=== PATIENT | female | born 1930 | race American Indian/Alaskan Native ===

== ENCOUNTER 2017-03-04 23:02 | Inpatient (IN) | payer MEDICARE ==
--- NOTE | 2017-03-05 01:54 | ED PDOC ---
Arrival/HPI - General Chief Complaint: Psychiatric Evaluation Time Seen by Provider: 03/04/17 23:21 Historian: Patient EM Caveat: Dementia - History of Present Illness Narrative History of Present Illness (Text): 03/05/17 23:21 86 year old female, whose past medical history includes dementia, presents to the emergency department by her residential for combative behavior. Patient is currently Alert & Oriented x1. Patient currently has no complaints, but patient has tenderness to belly. Patient is a bad historian. Patient denies any fevers, chills, chest pain, shortness of breath, nausea, vomiting, diarrhea, back pain, neck pain, urinary/bowel changes, headache, dizziness, or any other complaint. Activities at Onset: Light Context: Home (Long Term) Past Medical History - Provider Review Nursing Documentation Reviewed: Yes - Psychiatric Hx Substance Use: (un) Family/Social History - Physician Review Nursing Documentation Reviewed: Yes Family/Social History: No Known Family HX Smoking Status: un Hx Alcohol Use: (un) Hx Substance Use: (un) Allergies/Home Meds Allergies/Adverse Reactions: Allergies ciprofloxacin [From Cipro] Allergy (Verified 03/04/17 23:29) RASH Tetracyclines Allergy (Verified 03/04/17 23:29) RASH Home Medications: Home Meds Medication Instructions Recorded Confirmed Aspirin [Aspirin Chewable] 81 mg PO DAILY 03/04/17 03/04/17 Carvedilol [Coreg] 12.5 mg PO DAILY 03/04/17 03/04/17 Clopidogrel [Plavix] 75 mg PO DAILY 03/04/17 03/04/17 Hydralazine HCl 100 mg PO DAILY 03/04/17 03/04/17 Isosorbide Mononitrate [Isosorbide 60 mg PO DAILY 03/04/17 03/04/17 Mononitrate ER] Lorazepam 2 mg PO Q12H PRN 03/04/17 03/04/17 amLODIPine [Norvasc] 10 mg PO DAILY 03/04/17 03/04/17 Review of Systems - Physician Review All systems were reviewed & negative as marked: Yes - Review of Systems Constitutional: absent: Fevers, Other (Chills) Respiratory: absent: SOB Cardiovascular: absent: Chest Pain Gastrointestinal: Abdominal Pain. absent: Diarrhea, Nausea, Vomiting Genitourinary Female: absent: Dysuria, Frequency, Hematuria Musculoskeletal: absent: Back Pain, Neck Pain Neurological: absent: Headache, Dizziness Physical Exam Vital Signs Reviewed: Yes Vital Signs Temp Pulse Resp BP Pulse Ox 03/05/17 17:00 60 18 132/86 98 03/05/17 15:32 64 18 164/69 H 03/05/17 09:43 63 12 145/66 100 03/05/17 07:00 62 18 141/60 98 03/05/17 05:02 74 16 138/74 100 03/05/17 03:02 76 18 148/76 99 03/05/17 01:02 66 03/04/17 23:14 98.3 F 69 18 142/60 100 Temperature: Afebrile Blood Pressure: Normal Pulse: Regular Respiratory Rate: Normal Appearance: Positive for: Well-Appearing, Non-Toxic, Comfortable Pain Distress: None Mental Status: No: Alert and Oriented X 3 (Alert and Oritented ) - Systems Exam Head: Present: Atraumatic, Normocephalic Pupils: Present: PERRL Extroacular Muscles: Present: EOMI Conjunctiva: Present: Normal Mouth: Present: Moist Mucous Membranes Neck: Present: Normal Range of Motion Respiratory/Chest: Present: Clear to Auscultation, Good Air Exchange. No: Respiratory Distress, Accessory Muscle Use Cardiovascular: Present: Regular Rate and Rhythm, Normal S1, S2. No: Murmurs Abdomen: Present: Tenderness, Normal Bowel Sounds, Guarding. No: Distention, Peritoneal Signs Back: Present: Normal Inspection Upper Extremity: Present: Normal Inspection. No: Cyanosis, Edema Lower Extremity: Present: Normal Inspection. No: Edema Neurological: Present: GCS=15, CN II-XII Intact, Speech Normal Skin: Present: Warm, Dry, Normal Color. No: Rashes Psychiatric: Present: Alert. No: Oriented x 3 (Oriented x 1 ) Medical Decision Making ED Course and Treatment: 03/05/17 23:32 Impression: 86 year old female presents for combative behavior. Patient currently has tenderness to the abdomen. Plan: -- CT Abd & Pelvis IV Contrast -- EKG -- Labs -- Urinalysis -- Reassess and disposition Progress Notes: 03/05/17 03:23 Patient is increasingly agitated and trying to get out of bed. Patient is hallucinating and delusional. Unable to obtain lab work, but patient is not violent. 03/05/17 03:55 PES attempted to speak with patient. Patient was agitated and was too sedated after the medication. Patient has not yet been medically cleared. PES will come back after medical clearance. 03/05/17 07:00 EKG shows NSR at 62 BPM with 1st degree AV block, T-wave flattened in lead III and avf, QTc 433 mm prolonged. Interpreted by me. - Lab Interpretations Microbiology Results: Microbiology Results 03/05/17 17:00 Blood-Venous Blood Culture - Preliminary NO GROWTH AFTER 3 DAYS 03/05/17 16:03 Urine,Clean Catch Urine Culture - Final Escherichia Coli Lab Results: 03/05/17 05:02 03/05/17 05:02 Lab Results 03/05/17 16:03: Urine Color Yellow, Urine Appearance Sl cloudy, Urine pH 7.0, Ur Specific Hayes 1.010, Urine Protein Negative, Urine Glucose (UA) Negative, Urine Ketones Negative, Urine Blood Negative, Urine Nitrate Positive H, Urine Bilirubin Negative, Urine Urobilinogen 0.2, Ur Leukocyte Esterase Moderate H, Urine RBC Negative, Urine WBC 25 - 30, Ur Epithelial Cells 6 - 8, Urine Bacteria Many 03/05/17 05:02: Sodium 140, Potassium 3.5 L, Chloride 104, Carbon Dioxide 28, Anion Gap 12, BUN 17, Creatinine 1.1, Est GFR ( Amer) 57, Est GFR (Non- Af Amer) 47, Random Glucose 136 H, Calcium 9.3, Total Bilirubin 0.6, AST 37 H, ALT 21, Alkaline Phosphatase 79, Total Protein 7.2, Albumin 3.7, Globulin 3.5, Albumin/Globulin Ratio 1.0 L, Lipase 108 03/05/17 05:02: WBC 8.3, RBC 3.60, Hgb 11.5 L, Hct 34.2 L, MCV 95.0, MCH 31.9, MCHC 33.6, RDW 14.3, Plt Count 231, MPV 10.4, Gran % 36.3 L, Lymph % (Auto) 44.9 H, [place] % (Auto) 10.5 H, Eos % (Auto) 7.7 H, Baso % (Auto) 0.6, Gran # 3.01 , Lymph # 3.7 H, [place] # 0.9 H, Eos # 0.6, Baso # 0.05 I have reviewed the lab results: Yes - RAD Interpretation Radiology Orders: 03/05/17 07:16 ABD & PELVIS W/O PO OR IV CONT [CT] Stat 03/05/17 17:09 CHEST PORTABLE [RAD] Stat - EKG Interpretation Interpreted by ED Physician: Yes Type: 12 lead EKG - Medication Orders Current Medication Orders: Amlodipine Besylate (Norvasc) 10 mg PO DAILY [facility] Last Admin: 03/07/17 10:55 Dose: 10 mg MAR Blood Pressure Document 03/07/17 10:55 Y (Rec: 03/07/17 10:55 [id number][facility] Blood Pressure Blood Pressure (100/60-150/90) 139/75 Aspirin (Aspirin Chewable) 81 mg PO DAILY [facility] Last Admin: 03/08/17 18:38 Dose: 81 mg Carvedilol (Coreg) 12.5 mg PO DAILY [facility] Last Admin: 03/07/17 10:55 Dose: 12.5 mg MAR Pulse and Blood Pressure Document 03/07/17 10:55 Y (Rec: 03/07/17 10:55 [id number]) Pulse Pulse Rate (60-90) 84 Blood Pressure Blood Pressure (100/60-150/90) 139/75 Clopidogrel Bisulfate (Plavix) 75 mg PO DAILY [facility] Last Admin: 03/08/17 18:38 Dose: 75 mg Divalproex Sodium (Depakote Sprinkles) 125 mg PO TID [facility] PRN Reason: Protocol Last Admin: 03/08/17 18:40 Dose: 125 mg Enoxaparin Sodium (Lovenox) 30 mg SC DAILY [facility] PRN Reason: Protocol Last Admin: 03/08/17 18:57 Dose: 30 mg Subcutaneous Administrations Document 03/08/17 18:57 CV (Rec: 03/08/17 18:57 CV [id number]) Charges for Administration # of Subcutaneous Administrations 1 Haloperidol (Haldol) 0.25 mg PO Q4 PRN; Protocol PRN Reason: Agitation Last Admin: 03/09/17 02:16 Dose: 0.25 mg Behavioural Document 03/09/17 02:16 [place] (Rec: 03/09/17 02:16 [place] [id number]) Maintenance Maintenance Dose No Nonmedicinal Nonmedicinal Interventions Redirect Behavior Behavior for Medication: Biting/Hitting/Throwing/ Kicking Pulling IV lines/tubes/ catheter Haloperidol (Haldol) 0.25 mg PO AMHS JANETTE PRN Reason: Protocol Last Admin: 03/08/17 23:37 Dose: 0.25 mg Re-Assess: Reassess Psych Meds Document 03/09/17 00:37 [place] (Rec: 03/09/17 01:13 [place] [id number]) Reassess Psych Med Effective Hydralazine HCl (Apresoline) 50 mg PO TID JANETTE Last Admin: 03/07/17 14:28 Dose: Not Given Non-Admin Reason: Patient Refused Ceftriaxone Sodium (Rocephin 1 Gram Ivpb) 1 gm in 100 mls @ 100 mls/hr IVPB DAILY JANETTE PRN Reason: Protocol Last Admin: 03/08/17 16:12 Dose: 100 mls/hr eMAR Start Stop Document 03/08/17 16:12 CV (Rec: 03/08/17 16:13 CV [id number]) Intravenous Solution Start Date 03/08/17 Start Time 16:12 Dextrose (Dextrose 5% In Water 1000 Ml) 1,000 mls @ 100 mls/hr IV .Q10H [facility] Last Admin: 03/08/17 01:06 Dose: 100 mls/hr eMAR Start Stop Document 03/08/17 01:06 [facility] (Rec: 03/08/17 01:06 [id number]) Intravenous Solution Start Date 03/08/17 Start Time 01:06 Isosorbide Mononitrate (Imdur) 60 mg PO DAILY [facility] Last Admin: 03/07/17 10:54 Dose: 60 mg Lactobacillus Acidophilus (Bacid Acidophilus) 1 cap PO BID JANETTE Last Admin: 03/08/17 18:40 Dose: 1 cap Lorazepam (Ativan) 0.25 mg PO Q4 PRN PRN Reason: Agitation Last Admin: 03/09/17 02:15 Dose: 0.25 mg Behavioural Document 03/09/17 02:15 [place] (Rec: 03/09/17 02:15 [place] [id number]) Maintenance Maintenance Dose No Nonmedicinal Nonmedicinal Interventions Redirect Behavior Behavior for Medication: Biting/Hitting/Throwing/ Kicking Pulling IV lines/tubes/ catheter Re-Assess: Reassess Psych Meds Document 03/09/17 03:15 [place] (Rec: 03/09/17 03:55 [place] [id number]) Reassess Psych Med Effective Pantoprazole Sodium (Protonix Ec Tab) 40 mg PO 0600 [facility] Last Admin: 03/08/17 06:42 Dose: 40 mg Polyethylene Glycol (Miralax) 17 gm PO DAILY JANETTE Last Admin: 03/08/17 18:54 Dose: 17 gm Discontinued Medications Furosemide (Lasix) 40 mg IVP ONCE ONE Stop: 03/05/17 19:01 Last Admin: 03/06/17 01:26 Dose: Ceftriaxone Sodium (Rocephin 1 Gram Ivpb) 1 gm in 100 mls @ 200 mls/hr IVPB STAT STA PRN Reason: Protocol Stop: 03/05/17 17:34 Last Admin: 03/05/17 17:44 Dose: 200 mls/hr eMAR Start Stop Document 03/05/17 17:44 EWO (Rec: 03/05/17 17:44 EWO [id number]) Intravenous Solution Start Date 03/05/17 Start Time 17:44 End Date 03/05/17 End time 18:14 Total Infusion Time 30 Lactated Ringer's (Lactated Ringer's) 1,000 mls @ 999 mls/hr IV .Q1H1M JANETTE Last Admin: 03/05/17 17:44 Dose: 999 mls/hr eMAR Start Stop Document 03/05/17 17:44 EWO (Rec: 03/05/17 17:44 EWO [id number]) Intravenous Solution Start Date 03/05/17 Start Time 17:44 End Date 03/05/17 End time 17:55 Total Infusion Time 11 Potassium Chloride (Potassium Chloride 10 Meq/100 Ml) 10 meq in 100 mls @ 50 mls/hr IVPB Q2H JANETTE Stop: 03/05/17 22:59 Last Admin: 03/06/17 05:45 Dose: 50 mls/hr eMAR Start Stop Document 03/06/17 05:45 KT (Rec: 03/06/17 06:05 KT [id number]) Intravenous Solution Start Date 03/06/17 Start Time 05:45 End Date 03/06/17 End time 07:45 Total Infusion Time 120 Potassium Chloride (Potassium Chloride 10 Meq/100 Ml) 10 meq in 100 mls @ 50 mls/hr IVPB Q2H JANETTE Stop: 03/07/17 17:29 Last Admin: 03/07/17 16:08 Dose: 50 mls/hr eMAR Start Stop Document 03/07/17 16:08 YJ (Rec: 03/07/17 16:08 YJ [id number]) Intravenous Solution Start Date 03/07/17 Start Time 16:08 End Date 03/07/17 End time 18:08 Total Infusion Time 120 Sodium Chloride (Sodium Chloride 0.9%) 1,000 mls @ 999 mls/hr IV .Q1H1M STA Stop: 03/07/17 16:09 Last Admin: 03/07/17 15:20 Dose: 999 mls/hr eMAR Start Stop Document 03/07/17 15:20 YJ (Rec: 03/07/17 15:20 YJ [id number]) Intravenous Solution Start Date 03/07/17 Start Time 15:20 End Date 03/07/17 End time 16:20 Total Infusion Time 60 Sodium Chloride (Sodium Chloride 0.9%) 1,000 mls @ 999 mls/hr IV .Q1H1M STA Stop: 03/07/17 16:11 Lorazepam (Ativan) 1 mg IM ONCE ONE PRN Reason: Protocol Stop: 03/05/17 02:43 Last Admin: 03/05/17 02:48 Dose: 1 mg IM Administration Charges Document 03/05/17 02:48 JENIFER (Rec: 03/05/17 02:48 JENIFER [id number]) Injection Site MAR Injection Site Left Deltoid Charges for Administration # of IM Administrations 1 Lorazepam (Ativan) 0.5 mg IM ONCE ONE PRN Reason: Protocol Stop: 03/05/17 20:24 Last Admin: 03/05/17 20:45 Dose: 0.5 mg IM Administration Charges Document 03/05/17 20:45 [place] (Rec: 03/05/17 20:46 [place] [id number]) Injection Site MAR Injection Site Left Vastus Lateralis Charges for Administration # of IM Administrations 1 Behavioural Document 03/05/17 20:45 [place] (Rec: 03/05/17 20:46 [place] [id number]) Maintenance Maintenance Dose No Nonmedicinal Nonmedicinal Interventions Redirect Therapeutic Communication Behavior Behavior for Medication: Anxiety Re-Assess: Reassess Psych Meds Document 03/05/17 21:15 KT (Rec: 03/06/17 01:51 KT [id number]) Reassess Psych Med Ineffective-LIP notifed Lorazepam (Ativan) 0.5 mg IM ONCE ONE PRN Reason: Protocol Stop: 03/05/17 23:54 Last Admin: 03/06/17 00:43 Dose: 0.5 mg IM Administration Charges Document 03/06/17 00:43 KT (Rec: 03/06/17 00:44 KT [place] [id number]) Charges for Administration # of IM Administrations 1 Behavioural Document 03/06/17 00:43 KT (Rec: 03/06/17 00:44 KT [place] [id number]) Nonmedicinal Nonmedicinal Interventions Redirect Therapeutic Communication Re-Assess: Reassess Psych Meds Document 03/06/17 01:13 KT (Rec: 03/06/17 01:51 KT [id number]) Reassess Psych Med Effective Lorazepam (Ativan) 2 mg PO Q12H PRN PRN Reason: Agitation Lorazepam (Ativan) 0.5 mg IM ONCE ONE PRN Reason: Protocol Stop: 03/08/17 14:04 Last Admin: 03/08/17 14:31 Dose: 0.5 mg IM Administration Charges Document 03/08/17 14:31 CV (Rec: 03/08/17 14:31 CV [id number]) Injection Site MAR Injection Site Left Deltoid Charges for Administration # of IM Administrations 1 Behavioural Document 03/08/17 14:31 CV (Rec: 03/08/17 14:31 CV [id number]) Maintenance Maintenance Dose No Nonmedicinal Nonmedicinal Interventions Redirect Behavior Behavior for Medication: Biting/Hitting/Throwing/ Kicking Pulling IV lines/tubes/ catheter Re-Assess: Reassess Psych Meds Document 03/08/17 15:01 CV (Rec: 03/08/17 21:24 CV [id number]) Reassess Psych Med Effective Lorazepam (Ativan) 1 mg IVP ONCE ONE PRN Reason: Protocol Stop: 03/08/17 20:06 Last Admin: 03/08/17 20:23 Dose: 1 mg IVP Administration Document 03/08/17 20:23 [place] (Rec: 03/08/17 20:24 [place] [id number]) Charges for Administration # of IVP Administrations 1 Behavioural Document 03/08/17 20:23 [place] (Rec: 03/08/17 20:24 [place] [id number]) Maintenance Maintenance Dose No Nonmedicinal Nonmedicinal Interventions Redirect Therapeutic Communication Behavior Behavior for Medication: Anxiety Biting/Hitting/Throwing/ Kicking Hallucinations/paranoid/ delusions/extreme fear Re-Assess: Reassess Psych Meds Document 03/08/17 20:53 CV (Rec: 03/08/17 21:27 CV [id number]) Reassess Psych Med Effective Ziprasidone (Geodon Inj) 20 mg IM STAT STA PRN Reason: Protocol Stop: 03/05/17 03:22 Last Admin: 03/05/17 03:30 Dose: 20 mg IM Administration Charges Document 03/05/17 03:30 JENIFER (Rec: 03/05/17 07:42 JENIFER [id number]) Injection Site MAR Injection Site Left Deltoid Charges for Administration # of IM Administrations 1 - Scribe Statement The provider has reviewed the documentation as recorded by the Scribe Jose L Kruger Provider Scribe Attestation: All medical record entries made by the Scribe were at my direction and personally dictated by me. I have reviewed the chart and agree that the record accurately reflects my personal performance of the history, physical exam, medical decision making, and the department course for this patient. I have also personally directed, reviewed, and agree with the discharge instructions and disposition. Disposition/Present on Arrival - Present on Arrival Any Indicators Present on Arrival: No History of DVT/PE: No History of Uncontrolled Diabetes: No Urinary Catheter: No History of Decub. Ulcer: No History Surgical Site Infection Following: None - Disposition Have Diagnosis and Disposition been Completed?: Yes Diagnosis: Dementia Disposition: HOME/ ROUTINE Disposition Time: 08:00 Patient Plan: Discharge Patient Problems: Current Active Problems Problem Status Onset Dementia Acute Condition: IMPROVED
[2017-03-05 05:10] LABS: BASO # 0.05 K/mm3 (0.0-2.0); BASO % 0.6 % (0.0-3.0); EOS # 0.6 (0.0-0.7); EOS % 7.7 % (1.5-5.0); GRAN # 3.01 (1.4-6.5); GRAN % 36.3 % (50.0-68.0); HEMOGLOBIN 11.5 g/dL (12.0-16.0); LYMPH # 3.7 (1.2-3.4); LYMPH % 44.9 % (22.0-35.0); MEAN CORPUSCULAR HEMOGLOBIN 31.9 pg (25.0-35.0); MEAN CORPUSCULAR HGB CONC 33.6 g/dl (31.0-37.0); MEAN PLATELET VOLUME 10.4 fl (7.0-11.0); MONO # 0.9 (0.1-0.6); MONO % 10.5 % (1.0-6.0); RBC 3.6 10^6/uL (3.5-6.1); RED CELL DISTRIBUTION WIDTH 14.3 % (11.5-14.5); WHITE BLOOD COUNT 8.3 10^3/ul (4.5-11.0)
[2017-03-05 05:29] LABS: ALBUMIN 3.7 g/dL (3.0-4.8); CALCIUM 9.3 mg/dL (8.4-10.5)
[2017-03-05] MEDS ORDERED: Iohexol 350 MG/100 ML VIAL ONE (06:54)
--- NOTE | 2017-03-05 08:24 | ED PDOC ---
Physical Exam Vital Signs Reviewed: Yes Vital Signs Temp Pulse Resp BP Pulse Ox 03/05/17 09:43 63 12 145/66 100 03/05/17 07:00 62 18 141/60 98 03/05/17 05:02 74 16 138/74 100 03/05/17 03:02 76 18 148/76 99 03/05/17 01:02 66 03/04/17 23:14 98.3 F 69 18 142/60 100 Temperature: Afebrile Blood Pressure: Normal Pulse: Regular Respiratory Rate: Normal Medical Decision Making ED Course and Treatment: 03/05/17 08:23 Patient endorsed to me by Dr. Finnegan at 07:00, pending CT results and medical clearance for PES evaluation. Report Date : 03/05/2017 11:17:32 PROCEDURE: CT scan of the abdomen and pelvis 03/05/2017. Dictator : Braxton Rocha MD IMPRESSION: Limited study as detailed above. Findings consistent with constipation. Fecalized content is also present within the small bowel. Diverticulosis with no definitive radiographic evidence of acute diverticulitis. Wall thickening of the stomach likely due to incomplete distention however gastritis or other intrinsic/invasive wall lesion not excluded. Cholecystectomy. Cardiomegaly. Mildly enlarged bulky uterus with calcified uterine fibroids. - Lab Interpretations Lab Results: 03/05/17 05:02 03/05/17 05:02 Lab Results 03/05/17 05:02: Sodium 140, Potassium 3.5 L, Chloride 104, Carbon Dioxide 28, Anion Gap 12, BUN 17, Creatinine 1.1, Est GFR ( Amer) 57, Est GFR (Non- Af Amer) 47, Random Glucose 136 H, Calcium 9.3, Total Bilirubin 0.6, AST 37 H, ALT 21, Alkaline Phosphatase 79, Total Protein 7.2, Albumin 3.7, Globulin 3.5, Albumin/Globulin Ratio 1.0 L, Lipase 108 03/05/17 05:02: WBC 8.3, RBC 3.60, Hgb 11.5 L, Hct 34.2 L, MCV 95.0, MCH 31.9, MCHC 33.6, RDW 14.3, Plt Count 231, MPV 10.4, Gran % 36.3 L, Lymph % (Auto) 44.9 H, [place] % (Auto) 10.5 H, Eos % (Auto) 7.7 H, Baso % (Auto) 0.6, Gran # 3.01 , Lymph # 3.7 H, [place] # 0.9 H, Eos # 0.6, Baso # 0.05 - RAD Interpretation Radiology Orders: 03/05/17 07:16 ABD & PELVIS W/O PO OR IV CONT [CT] Stat - Medication Orders Current Medication Orders: Discontinued Medications Lorazepam (Ativan) 1 mg IM ONCE ONE PRN Reason: Protocol Stop: 03/05/17 02:43 Last Admin: 03/05/17 02:48 Dose: 1 mg IM Administration Charges Document 03/05/17 02:48 JENIFER (Rec: 03/05/17 02:48 JENIFER [id number][facility] Injection Site MAR Injection Site Left Deltoid Charges for Administration # of IM Administrations 1 Ziprasidone (Geodon Inj) 20 mg IM STAT STA PRN Reason: Protocol Stop: 03/05/17 03:22 Last Admin: 03/05/17 03:30 Dose: 20 mg IM Administration Charges Document 03/05/17 03:30 JENIFER (Rec: 03/05/17 07:42 JENIFER [id number]) Injection Site MAR Injection Site Left Deltoid Charges for Administration # of IM Administrations 1 Disposition/Present on Arrival - Present on Arrival Any Indicators Present on Arrival: No History of DVT/PE: No History of Uncontrolled Diabetes: No Urinary Catheter: No History of Decub. Ulcer: No History Surgical Site Infection Following: None - Disposition Have Diagnosis and Disposition been Completed?: Yes Diagnosis: Dementia Disposition: HOME/ ROUTINE Disposition Time: 17:38 Patient Problems: Current Active Problems Problem Status Onset Dementia Acute Condition: IMPROVED
--- NOTE | 2017-03-05 11:19 | CT ---
PROCEDURE: CT scan of the abdomen and pelvis 03/05/2017. HISTORY: Abdominal pain. COMPARISON: No prior study available comparison TECHNIQUE: Contiguous axial images of the abdomen and pelvis performed without oral or intravenous contrast material. . Coronal and Sagittal reformats generated. Radiation dose: Total exam DLP = 660.97 mGy-cm. This CT exam was performed using one or more of the following dose reduction techniques: Automated exposure control, adjustment of the mA and/or kV according to patient size, and/or use of iterative reconstruction technique. Study is limited due to the lack of oral and intravenous contrast material. Study is further degraded by significant crossing streak and beam hardening artifact arising from the upper extremities as the patient was unable to the the maintain arms out of the field of view FINDINGS: LOWER THORAX: Heart is enlarged. Dense coronary artery calcifications are present. Minor atelectasis/scarring changes both lung bases including the lingular and middle lobe regions. . No evidence of effusion or basilar pneumothorax. LIVER: The liver exhibits relatively normal size measuring approximately 14 cm in CC dimension. . Liver exhibits heterogeneous attenuation due to streak and beam hardening artifact. GALLBLADDER AND BILE DUCTS: Gallbladder has been surgically resected with metallic clips in the gallbladder fossa. PANCREAS: Pancreas is poorly delineated however no large pancreatic masses or collections identified. SPLEEN: Spleen exhibits normal size and relatively normal attenuation pattern so far as can be seen. Splenic artery calcifications present. . ADRENALS: No obvious adrenal lesions. KIDNEYS AND URETERS: Kidneys exhibit relatively symmetric size. . The small calcifications seen in the upper pole right kidney ; calcification could be vascular in origin however no evidence of hydronephrosis. BLADDER: Urinary bladder is physiologically distended. No evidence of intraluminal urinary bladder calculi. REPRODUCTIVE: The uterus is somewhat is enlarged and bulky for this patient's stated age with a relatively large approximately 4.2 cm irregular ring-like calcific density in the right fundal region consistent with calcified uterine fibroid. Small calcified uterine fibroids also felt to be present. . APPENDIX: Appendix not seen with certainty the the on this exam BOWEL: Evaluation of the bowel is quite limited due to the lack of oral contrast material. The stomach is incompletely distended which presumably in part accounts for thick-walled appearance. Gastritis or other intrinsic/invasive wall lesion cannot be excluded. Visualized loops of small bowel exhibit relatively normal contour and caliber. No evidence of acute mechanical small bowel obstruction however the small bowel does appear to be contained fecalized content. There is moderate amount of stool seen throughout the large bowel consistent with constipation. Scattered colonic diverticula are also seen the bulk which arise from the descending and sigmoid colon. No definitive radiographic evidence of acute diverticulitis. PERITONEUM: No gross free intraperitoneal air. No obvious free or loculated fluid collections. LYMPH NODES: No significant/ bulky adenopathy. VASCULATURE: No evidence of abdominal aortic or iliac artery aneurysms. Calcified atherosclerotic plaque seen along the abdominal aorta and iliac arteries. BONES: Multilevel degenerative spondylosis of the lower thoracic and lumbar spine. There is a mild to moderate levoscoliosis centered in the L2-L3 level likely due to partial fusion of the right lateral margins of the L2 and L3 segments. OTHER FINDINGS: None. IMPRESSION: Limited study as detailed above. Findings consistent with constipation. Fecalized content is also present within the small bowel. Diverticulosis with no definitive radiographic evidence of acute diverticulitis. Wall thickening of the stomach likely due to incomplete distention however gastritis or other intrinsic/invasive wall lesion not excluded. Cholecystectomy. Cardiomegaly. Mildly enlarged bulky uterus with calcified uterine fibroids.
--- NOTE | 2017-03-05 14:47 | CARD ---
APPROVED REPORT EKG Measurement Heart [id number] <Conclusion> Sinus rhythm with sinus arrhythmia with 1st degree AV block Nonspecific T wave abnormality Abnormal ECG
[2017-03-05 16:54] LABS: URINE BILIRUBIN NEGATIVE (NEGATIVE); URINE BLOOD NEGATIVE (NEGATIVE); URINE GLUCOSE (UA) NEGATIVE (NEGATIVE); URINE LEUKOCYTE ESTERASE MODERATE Leu/uL (NEGATIVE); URINE NITRATE POSITIVE (NEGATIVE); URINE PROTEIN NEGATIVE mg/dL (<30 mg/dL); URINE UROBILINOGEN 0.2 E.U./dL (<1 E.U./dL)
[2017-03-05 17:00] LABS: URINE APPEARANCE SL CLOUDY (CLEAR); URINE COLOR YELLOW (YELLOW)
[2017-03-05] MEDS ORDERED: cefTRIAXone 1 gm 1 GM/100 ML BAG IVPB STA (17:05)
[2017-03-05 17:06] LABS: URINE BACTERIA MANY (NEG); URINE RBC NEGATIVE /hpf (0-2); URINE WBC 25 - 30 /hpf (0-6)
[2017-03-05] MEDS ORDERED: Lactated Ringer's 1,000 ML IV SCH (17:15)
--- NOTE | 2017-03-05 18:57 | CP.PCM.HP ---
<Won Contreras - Last Filed: 03/05/17 18:42> History of Present Illness - History of Present Illness History of Present Illness: CC: AMS HPI: Pt is an 86 yo female with PMH of rhabdomyolysis, HLD, alzheimer's disease , dementia,CAD, HTN, DM2, anxiety was transferred from half-way due to combative behavior. Pt is oriented to self, but not to person or place. At time of exam, patient was not combative. However, responses were not appropriate and incoherent upon questioning. Further HPI and ROS limited due to patient's current mental status. PMH: rhabdomyolysis, HLD, alzheimer's disease, dementia,CAD, HTN, DM2, anxiety PSH: Unable to obtain All: Cipro, Tetracyclines FHx: Unable to obtain SH: Unable to obtain Present on Admission - Present on Admission Any Indicators Present on Admission: No Review of Systems - Review of Systems Review of Systems: 12 point ROS unobtainable due to patient's current mental status. Past Patient History - Past Social History Smoking Status: un - PSYCHIATRIC Hx Substance Use: (un) Meds Allergies/Adverse Reactions: Allergies Allergy/AdvReac Type Severity Reaction Status Date / Time ciprofloxacin [From Cipro] Allergy RASH Verified 03/04/17 23:29 Tetracyclines Allergy RASH Verified 03/04/17 23:29 Physical Exam - Constitutional Appears: No Acute Distress - Head Exam Head Exam: NORMAL INSPECTION - Eye Exam Eye Exam: Normal appearance - ENT Exam ENT Exam: Normal Exam - Neck Exam Neck exam: Positive for: Normal Inspection - Respiratory Exam Respiratory Exam: Clear to Auscultation Bilateral. absent: Rales, Rhonchi, Wheezes - Cardiovascular Exam Cardiovascular Exam: RRR, +S1, +S2. absent: Diastolic murmur, Gallop, Rubs, Systolic Murmur - GI/Abdominal Exam GI & Abdominal Exam: Soft, Tenderness (suprapubic). absent: Guarding, Rebound - Extremities Exam Extremities exam: Positive for: normal inspection - Back Exam Back exam: NORMAL INSPECTION - Neurological Exam Neurological exam: Alert (oriented to self, but not place or time), Altered - Psychiatric Exam Psychiatric exam: Agitated - Skin Skin Exam: Dry, Intact, Normal Color, Warm Results - Vital Signs Recent Vital Signs: Last Vital Signs Temp 98.3 F 03/04/17 23:14 Pulse 60 12/30/17 17:00 Resp 18 03/05/17 17:00 BP 132/86 03/05/17 17:00 Pulse Ox 98 03/05/17 17:00 - Labs Result Diagrams: 03/05/17 05:02 03/05/17 05:02 Assessment & Plan - Assessment and Plan (Free Text) Assessment: 86 yo female with PMH of rhabdomyolysis, HLD, alzheimer's disease, dementia,CAD , HTN, DM2, anxiety admitted for AMS likely 2/2 UTI. Plan: 1. AMS likely 2/2 UTI - UA positive for nitrates and moderate leukocyte esterase - Blood and urine cultures ordered - Ceftriaxone 1 gm IVPB daily - Aspiration and Fall precautions 2. Constipation - CT findings consistent with constipation, diverticulosis - Miralax - Lactobacillus 3. H/o Dementia/Alzheimer Disease/Anxiety - Acute agitation - Psych consulted 4. R/o rhabdomyolysis - CK ordered 5. Hypokalemia - Repleted - Cont to monitor and replete as needed 6. CAD - Cont home medications 7. HTN - Cont home medications - Hold for SBP < 110, HR <60 GI/DVT PPx - Protonix - Lovenox Pt seen and discussed in detail with Dr. Mast. Alex Contreras, PGY1 <Saji Nicholson - Last Filed: 03/09/17 13:25> Results - Vital Signs Recent Vital Signs: Last Vital Signs Temp 97.7 F 03/08/17 07:00 Pulse 71 03/09/17 12:00 Resp 20 03/08/17 16:23 BP 177/72 H 03/09/17 12:01 Pulse Ox 100 03/08/17 16:23 - Labs Result Diagrams: 03/09/17 08:00 03/09/17 08:00 Labs: Laboratory Results - last 24 hr 03/09/17 03/09/17 08:00 08:00 WBC 9.1 RBC 3.65 Hgb 11.5 L Hct 35.0 L MCV 95.9 MCH 31.5 MCHC 32.9 RDW 14.5 Plt Count 235 MPV 10.3 Sodium 142 Potassium 4.3 Chloride 105 Carbon Dioxide 26 Anion Gap 15 BUN 9 Creatinine 1.0 Est GFR ( Amer) > 60 Est GFR (Non-Af Amer) 53 Random Glucose 96 Calcium 9.7 Total Bilirubin 0.5 AST 29 ALT 30 Alkaline Phosphatase 93 Total Protein 7.2 Albumin 3.7 Globulin 3.5 Albumin/Globulin Ratio 1.0 L Attending/Attestation - Attestation I have personally seen and examined this patient.: Yes I have fully participated in the care of the patient.: Yes I have reviewed all pertinent clinical information: Yes Notes (Text): 03/09/17 13:24 Patient was seen and exaimed with medical office technician. 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 We will also get and Psychiatry consult
[2017-03-06] MEDS: Pantoprazole 40 mg EC Tab PO SCH (06:06)
[2017-03-06 09:26] LABS: HEMOGLOBIN 10.9 g/dL (12.0-16.0); MEAN CELL VOLUME 96.5 fl (80.0-105.0); MEAN CORPUSCULAR HEMOGLOBIN 31.6 pg (25.0-35.0); MEAN CORPUSCULAR HGB CONC 32.7 g/dl (31.0-37.0); MEAN PLATELET VOLUME 10.7 fl (7.0-11.0); RBC 3.45 10^6/uL (3.5-6.1); RED CELL DISTRIBUTION WIDTH 14.7 % (11.5-14.5); WHITE BLOOD COUNT 8.5 10^3/ul (4.5-11.0)
[2017-03-06 09:43] LABS: ALBUMIN 3.3 g/dL (3.0-4.8); CALCIUM 9.1 mg/dL (8.4-10.5)
[2017-03-06] MEDS: Divalproex 125 mg EC Sprinkle Cap PO SCH ×3 (10:34→17:50)
[2017-03-06] MEDS: Lactobacillus Acidophilus 500 MU Cap PO SCH ×2 (10:34→18:02)
[2017-03-06] MEDS: POLYETHYLENE GLYCOL 3350 17 GM/Dose PACKET PO SCH (10:35)
[2017-03-06] MEDS: Enoxaparin 30 mg Syringe SC SCH (10:35)
[2017-03-06] MEDS: cefTRIAXone 1 gm 1 GM/100 ML BAG IVPB SCH (10:35)
--- NOTE | 2017-03-06 13:01 | CP.PCM.PN ---
"Addendum entered and electronically signed by Ginger Avery DO 03/06/17 13:42: Got a call from nurse at 13:4o saying that patient is refusing to eat and drink and is still agitated. Added D5W at 100mls/hr. DC when Patient starts to eat and drink. Original Note: <Ginger Avery - Last Filed: 03/06/17 12:54> Subjective - Date & Time of Evaluation Date of Evaluation: 03/06/17 Time of Evaluation: 12:55 - Subjective Subjective: Patient seen and examined at bedside. Overnight, patient was agitated and confused requiring restraints. ROS could not be done due to patient's lethargy. Objective - Vital Signs/Intake and Output Vital Signs (last 24 hours): Temp Pulse Resp BP Pulse Ox 97.3 F L 60 18 151/70 H 99 03/06/17 07:49 03/06/17 07:49 03/06/17 07:49 03/06/17 07:49 03/06/17 07:49 Intake and Output: 03/06/17 03/06/17 06:59 18:59 Intake Total 360 Balance 360 - Medications Medications: Current Medications Amlodipine Besylate (Norvasc) 10 mg PO DAILY [facility] Last Admin: 03/06/17 10:35 Dose: Not Given Aspirin (Aspirin Chewable) 81 mg PO DAILY [facility] Last Admin: 03/06/17 10:34 Dose: Not Given Carvedilol (Coreg) 12.5 mg PO DAILY [facility] Last Admin: 03/06/17 10:34 Dose: Not Given Clopidogrel Bisulfate (Plavix) 75 mg PO DAILY [facility] Last Admin: 03/06/17 10:35 Dose: Not Given Divalproex Sodium (Depakote Sprinkles) 125 mg PO TID [facility] PRN Reason: Protocol Last Admin: 03/06/17 10:34 Dose: Not Given Enoxaparin Sodium (Lovenox) 30 mg SC DAILY [facility] PRN Reason: Protocol Last Admin: 03/06/17 10:35 Dose: Not Given Haloperidol (Haldol) 0.25 mg PO Q4 PRN; Protocol PRN Reason: Agitation Haloperidol (Haldol) 0.25 mg PO [facility] JANETTE PRN Reason: Protocol Hydralazine HCl (Apresoline) 50 mg PO TID [facility] Last Admin: 03/06/17 10:34 Dose: Not Given Ceftriaxone Sodium (Rocephin 1 Gram Ivpb) 1 gm in 100 mls @ 100 mls/hr IVPB DAILY [facility] PRN Reason: Protocol Last Admin: 03/06/17 10:35 Dose: Not Given Isosorbide Mononitrate (Imdur) 60 mg PO DAILY [facility] Last Admin: 03/06/17 10:35 Dose: Not Given Lactobacillus Acidophilus (Bacid Acidophilus) 1 cap PO BID [facility] Last Admin: 03/06/17 10:34 Dose: Not Given Lorazepam (Ativan) 0.25 mg PO Q4 PRN PRN Reason: Agitation Pantoprazole Sodium (Protonix Ec Tab) 40 mg PO 0600 [facility] Last Admin: 03/06/17 06:06 Dose: Not Given Polyethylene Glycol (Miralax) 17 gm PO DAILY [facility] Last Admin: 03/06/17 10:35 Dose: Not Given - Labs Labs: 03/06/17 09:00 03/06/17 09:00 - Additional Findings Additional findings: - Constitutional Appears: No Acute Distress - Head Exam Head Exam: NORMAL INSPECTION - Eye Exam Eye Exam: Normal appearance - ENT Exam ENT Exam: Normal Exam - Neck Exam Neck exam: Positive for: Normal Inspection - Respiratory Exam Respiratory Exam: Clear to Auscultation Bilateral. absent: Rales, Rhonchi, Wheezes - Cardiovascular Exam Cardiovascular Exam: RRR, +S1, +S2. absent: Diastolic murmur, Gallop, Rubs, Systolic Murmur - GI/Abdominal Exam GI & Abdominal Exam: Soft, Tenderness (suprapubic). absent: Guarding, Rebound - Extremities Exam Extremities exam: Positive for: normal inspection - Back Exam Back exam: NORMAL INSPECTION - Neurological Exam Neurological exam: Sleeping - Psychiatric Exam Psychiatric exam: Sleeping - Skin Skin Exam: Dry, Intact, Normal Color, Warm Assessment and Plan - Assessment and Plan (Free Text) Assessment: 86 yo female with PMH of rhabdomyolysis, HLD, alzheimer's disease, dementia,CAD , HTN, DM2, anxiety admitted for AMS likely 2/2 UTI. Plan: 1. AMS likely 2/2 UTI - UA positive for nitrates and moderate leukocyte esterase - Blood Cultures - PENDING - Urine Cultures - Gram Negative Rods (Prelim) - F/U on sensitivities tomorrow - Ceftriaxone 1 gm IVPB daily - Aspiration and Fall precautions - Cont. to monitor mental status 2. Constipation - CT findings consistent with constipation, diverticulosis - Miralax - Lactobacillus 3. H/o Dementia/Alzheimer Disease/Anxiety - Acute agitation - Psych consulted (Dr. Dewey) - Recs Appreciated +0.25 mg PO Q4 PRN +Haldol 0.25mg PO Q4 PRN | +Haldol 0.25 AMHS 4. R/o rhabdomyolysis - Total CK- 123 5. Hypokalemia (Resolved) - Cont to monitor and replete as needed 6. CAD - Cont home medications: Plavix 75 Daily 7. HTN - Cont home medications: Norvasc 10, Coreg 12.5 Dialy, - Hold for SBP < 110, HR <60 GI/DVT PPx - Protonix - Lovenox Pt seen and discussed in detail with Dr. Max Avery, PGY1 <Nerissa Santana - Last Filed: 03/06/17 14:38> Objective - Vital Signs/Intake and Output Vital Signs (last 24 hours): Temp Pulse Resp BP Pulse Ox 97.3 F L 60 18 151/70 H 99 03/06/17 07:49 03/06/17 07:49 03/06/17 07:49 03/06/17 07:49 03/06/17 07:49 Intake and Output: 03/06/17 03/06/17 06:59 18:59 Intake Total 360 0 Balance 360 0 - Medications Medications: Current Medications Amlodipine Besylate (Norvasc) 10 mg PO DAILY [facility] Last Admin: 03/06/17 10:35 Dose: Not Given Aspirin (Aspirin Chewable) 81 mg PO DAILY [facility] Last Admin: 03/06/17 10:34 Dose: Not Given Carvedilol (Coreg) 12.5 mg PO DAILY [facility] Last Admin: 03/06/17 10:34 Dose: Not Given Clopidogrel Bisulfate (Plavix) 75 mg PO DAILY [facility] Last Admin: 03/06/17 10:35 Dose: Not Given Divalproex Sodium (Depakote Sprinkles) 125 mg PO TID [facility] PRN Reason: Protocol Last Admin: 03/06/17 10:34 Dose: Not Given Enoxaparin Sodium (Lovenox) 30 mg SC DAILY [facility] PRN Reason: Protocol Last Admin: 03/06/17 10:35 Dose: Not Given Haloperidol (Haldol) 0.25 mg PO Q4 PRN; Protocol PRN Reason: Agitation Haloperidol (Haldol) 0.25 mg PO AMHS JANETTE PRN Reason: Protocol Hydralazine HCl (Apresoline) 50 mg PO TID [facility] Last Admin: 03/06/17 10:34 Dose: Not Given Ceftriaxone Sodium (Rocephin 1 Gram Ivpb) 1 gm in 100 mls @ 100 mls/hr IVPB DAILY [facility] PRN Reason: Protocol Last Admin: 03/06/17 10:35 Dose: Not Given Dextrose (Dextrose 5% In Water 1000 Ml) 1,000 mls @ 100 mls/hr IV .Q10H [facility] Isosorbide Mononitrate (Imdur) 60 mg PO DAILY [facility] Last Admin: 03/06/17 10:35 Dose: Not Given Lactobacillus Acidophilus (Bacid Acidophilus) 1 cap PO BID [facility] Last Admin: 03/06/17 10:34 Dose: Not Given Lorazepam (Ativan) 0.25 mg PO Q4 PRN PRN Reason: Agitation Pantoprazole Sodium (Protonix Ec Tab) 40 mg PO 0600 [facility] Last Admin: 03/06/17 06:06 Dose: Not Given Polyethylene Glycol (Miralax) 17 gm PO DAILY [facility] Last Admin: 03/06/17 10:35 Dose: Not Given - Labs Labs: 03/06/17 09:00 03/06/17 09:00 Attending/Attestation - Attestation I have personally seen and examined this patient.: Yes I have fully participated in the care of the patient.: Yes I have reviewed all pertinent clinical information, including history, physical exam and plan: Yes Notes (Text): 03/06/17 14:33 86 year old female with past medical history of CAD, hypertension, dementia and Alzheimer's who was sent from [place] due to AMS. She was found to have UTI and started on iv antibiotics. UCx is growing gram negative rods. Psychiatry evaluation was requested for agitation and delirium. CT scan also showed constipation; she is on miralax. She is on aspirin, plavix, imdur and coreg for history of CAD. Lipid panel is ordered for AM. Nerissa Santana MD Hospitalist."
--- NOTE | 2017-03-06 14:23 | RAD ---
HISTORY: ams COMPARISON: No prior. FINDINGS: LUNGS: The no focal consolidation. Slight elevation right hemidiaphragm possibly due to eventration. PLEURA: No significant pleural effusion identified, no pneumothorax apparent. CARDIOVASCULAR: Cardiomegaly. OSSEOUS STRUCTURES: Multilevel degenerative spondylosis of the thoracic spine with mild dextroscoliosis centered in the lower thoracic region. Degenerative changes both shoulder girdles. VISUALIZED UPPER ABDOMEN: Bowel interposition. OTHER FINDINGS: None. IMPRESSION: No focal consolidation
--- NOTE | 2017-03-06 16:06 | CON ---
DATE: HISTORY OF PRESENT ILLNESS: Patient is an 86-year-old -[place] female who has a history of Alzheimer's dementia who was transferred from halfway due to combative behavior. Of note, patient was recently switched to a different nursing homes and her behavior, her agitation and combativeness reflects a change in her normal baseline, confused but calm presentation. Patient arrived yesterday around 11:00 p.m. and while she was initially calm, she did escalate and become delusional, notably hallucinating and could not be redirected. Patient required 1 mg Ativan IM at around 2:48 a.m. and then received an additional Geodon 20 mg IM less than an hour later as she could not be redirected. Patient was evaluated by psychiatric clinicians on multiple occasions; however, was found to be too sedated for an interview. She was ultimately admitted to the medical floor with the diagnosis of altered mental status secondary to UTI and psychiatry was consulted to follow up. I reviewed recent notes and I spoke with nursing on the unit and apparently patient was difficult overnight. She was notably combative and was actively hallucinating, talking to herself and laughing. Patient required wrist restraints and nursing staff did try to remove these restraints; however, patient resumed pulling at her IV tubing. She was quite unpredictable, had scratched staff and attempted to bite them if they tried to assist her. Patient required 2 doses of Ativan 0.5 mg and she was up for most of night due to agitation. Nursing staff indicated she was disoriented, only oriented to herself, actively hallucinating, not following direction, yelling and unpredictable. Nursing talked with patient's daughter who was aware of patient's behavior and daughter indicated that patient's combative behavior is not consistent with her baseline and her agitation was different from her normal baseline, confusion with cooperativity. I attempted to interview patient and nursing at my side also attempted to help interview patient this morning; however, patient could not be roused likely due to combination of a few doses of Ativan overnight. She could be woken, but would fall right back to sleep, could not respond to any questioning reasonably. She appeared quite comfortable and she was still in wrist restraints at my visit. Full mental status exam obviously could not be done due to her sedation; however, it is quite clear that her insight and judgment are impaired and her impulse control is currently poor. PHYSICAL EXAMINATION: VITAL SIGNS: Reviewed at 7:49 a.m., they were 97.3, 60, 151/70 and 18. LABORATORY DATA: Patient's recent laboratory work was also reviewed by this provider. Patient does appear to have an indication of urinary tract infection as of urinalysis on 03/05/2017. RELEVANT PSYCHIATRIC MEDICATIONS: Include Depakote 125 mg p.o. t.i.d. scheduled and then Ativan 2 mg p.o. q.12 p.r.n. IMPRESSION: Likely delirium with behavioral disturbance associated with underlying Alzheimer's dementia. Patient also with psychotic symptoms. RECOMMENDATIONS: 1. At this time, patient is actively hallucinating. Her multiple nursing staff and ER staff report patient would benefit from low dose antipsychotic to help with impulse control and disorganizations as well as hallucinations. At this time, I will start Haldol 0.25 mg every 4 hours p.r.n. agitation and provide Ativan 0.25 every four hours p.r.n. agitation to be taken together. 2. I will check Depakote level; however, we will provide small increase in Depakote dosing in the p.m. once Depakote level returns . This will also help with mood and impulse control; however, due to patient's age and current comorbidities, we will conservatively wait for levels to return before changing Depakote dosing. 3. We will start low dose Haldol 0.25 mg a.m. and at bedtime to aid with hallucination, agitation and impulse control. Please minimize benzo use as this can worsen disinhibition and confusion in elderly. Psychiatry will continue to follow up. Specifically, Ashlie REY to follow with patient tomorrow and evaluate patient's progress and tolerance to medications as well as need for further adjustments. Aneesh Grimaldo MD
[2017-03-07] MEDS: Pantoprazole 40 mg EC Tab PO SCH (07:09)
[2017-03-07 08:15] LABS: HEMOGLOBIN 11.9 g/dL (12.0-16.0); MEAN CELL VOLUME 95.2 fl (80.0-105.0); MEAN CORPUSCULAR HEMOGLOBIN 31.7 pg (25.0-35.0); MEAN CORPUSCULAR HGB CONC 33.3 g/dl (31.0-37.0); MEAN PLATELET VOLUME 10.7 fl (7.0-11.0); RBC 3.75 10^6/uL (3.5-6.1); RED CELL DISTRIBUTION WIDTH 14.4 % (11.5-14.5); WHITE BLOOD COUNT 8.4 10^3/ul (4.5-11.0)
[2017-03-07 08:22] LABS: ALBUMIN 3.5 g/dL (3.0-4.8); CALCIUM 9.3 mg/dL (8.4-10.5); MAGNESIUM 1.8 mg/dL (1.7-2.2)
[2017-03-07] MEDS: POLYETHYLENE GLYCOL 3350 17 GM/Dose PACKET PO SCH (10:54)
[2017-03-07] MEDS: cefTRIAXone 1 gm 1 GM/100 ML BAG IVPB SCH (10:54)
[2017-03-07] MEDS: Lactobacillus Acidophilus 500 MU Cap PO SCH ×3 (10:54→17:43)
[2017-03-07] MEDS: Divalproex 125 mg EC Sprinkle Cap PO SCH ×5 (10:54→17:42)
[2017-03-07] MEDS: Enoxaparin 30 mg Syringe SC SCH (10:55)
--- NOTE | 2017-03-07 11:43 | CP.PCM.PN ---
<Pascual Pena - Last Filed: 03/07/17 11:40> Subjective - Date & Time of Evaluation Date of Evaluation: 03/07/17 Time of Evaluation: 06:00 - Subjective Subjective: Patient was seen and evaluated bedside. Patient complained of jaw soreness, denied any other complaints. Nurse stated the patient has been in and out of periods of hallucinations. Objective - Vital Signs/Intake and Output Vital Signs (last 24 hours): Temp Pulse Resp BP Pulse Ox 98.5 F 84 15 139/75 97 03/07/17 08:00 03/07/17 08:00 03/07/17 08:00 03/07/17 08:00 03/07/17 08:00 Intake and Output: 03/07/17 03/07/17 06:59 18:59 Intake Total 1500 Balance 1500 - Medications Medications: Current Medications Amlodipine Besylate (Norvasc) 10 mg PO DAILY [facility] Last Admin: 03/06/17 10:35 Dose: Not Given Aspirin (Aspirin Chewable) 81 mg PO DAILY [facility] Last Admin: 03/06/17 10:34 Dose: Not Given Carvedilol (Coreg) 12.5 mg PO DAILY [facility] Last Admin: 03/06/17 10:34 Dose: Not Given Clopidogrel Bisulfate (Plavix) 75 mg PO DAILY [facility] Last Admin: 03/06/17 10:35 Dose: Not Given Divalproex Sodium (Depakote Sprinkles) 125 mg PO TID [facility] PRN Reason: Protocol Last Admin: 03/06/17 17:50 Dose: Not Given Enoxaparin Sodium (Lovenox) 30 mg SC DAILY [facility] PRN Reason: Protocol Last Admin: 03/06/17 10:35 Dose: Not Given Haloperidol (Haldol) 0.25 mg PO Q4 PRN; Protocol PRN Reason: Agitation Haloperidol (Haldol) 0.25 mg PO AMHS [facility] PRN Reason: Protocol Last Admin: 03/06/17 21:13 Dose: 0.25 mg Hydralazine HCl (Apresoline) 50 mg PO TID [facility] Last Admin: 03/06/17 18:02 Dose: Not Given Ceftriaxone Sodium (Rocephin 1 Gram Ivpb) 1 gm in 100 mls @ 100 mls/hr IVPB DAILY [facility] PRN Reason: Protocol Last Admin: 03/06/17 10:35 Dose: Not Given Dextrose (Dextrose 5% In Water 1000 Ml) 1,000 mls @ 100 mls/hr IV .Q10H [facility] Last Admin: 03/07/17 01:12 Dose: 100 mls/hr Potassium Chloride (Potassium Chloride 10 Meq/100 Ml) 10 meq in 100 mls @ 50 mls/hr IVPB Q2H [facility] Stop: 03/07/17 17:29 Isosorbide Mononitrate (Imdur) 60 mg PO DAILY [facility] Last Admin: 03/06/17 10:35 Dose: Not Given Lactobacillus Acidophilus (Bacid Acidophilus) 1 cap PO BID [facility] Last Admin: 03/06/17 18:02 Dose: Not Given Lorazepam (Ativan) 0.25 mg PO Q4 PRN PRN Reason: Agitation Last Admin: 03/06/17 21:14 Dose: 0.25 mg Pantoprazole Sodium (Protonix Ec Tab) 40 mg PO 0600 [facility] Last Admin: 03/07/17 07:09 Dose: 40 mg Polyethylene Glycol (Miralax) 17 gm PO DAILY [facility] Last Admin: 03/06/17 10:35 Dose: Not Given - Labs Labs: 03/07/17 07:30 03/07/17 07:30 - Constitutional Appears: Non-toxic, No Acute Distress - Head Exam Head Exam: ATRAUMATIC, NORMAL INSPECTION, NORMOCEPHALIC - Eye Exam Eye Exam: Normal appearance - ENT Exam ENT Exam: Mucous Membranes Moist - Respiratory Exam Respiratory Exam: Clear to Ausculation Bilateral, NORMAL BREATHING PATTERN - Cardiovascular Exam Cardiovascular Exam: REGULAR RHYTHM - GI/Abdominal Exam GI & Abdominal Exam: Soft, Normal Bowel Sounds - Neurological Exam Neurological Exam: Alert, Awake. absent: Oriented x3 Additional comments: Patient not alert to time or place Assessment and Plan - Assessment and Plan (Free Text) Assessment: 86 yo female with PMH of rhabdomyolysis, HLD, alzheimer's disease, dementia,CAD , HTN, DM2, anxiety admitted for AMS likely 2/2 UTI. Plan: 1. AMS likely 2/2 UTI - UA positive for nitrates and moderate leukocyte esterase - Blood Cultures - no growth - Urine Cultures - Gram Negative Rods- Mercado Sensitive - Ceftriaxone 1 gm IVPB daily - Aspiration and Fall precautions - Cont. to monitor mental status 2. Constipation - CT findings consistent with constipation, diverticulosis - Miralax - Lactobacillus 3. H/o Dementia/Alzheimer Disease/Anxiety - Acute agitation - Psych consulted (Dr. Dewey) - Recs Appreciated -Haldol 0.25mg PO Q4 PRN -Haldol 0.25 AMHS -Atovan .25 PO Q4 PRN 4. R/o rhabdomyolysis - Total CK- 123 5. Hypokalemia -K 3.4 -repleted with 3 K 10 riders -continue to monitor 6. CAD - Cont home medications: Plavix 75 Daily 7. HTN - Cont home medications: Norvasc 10, Coreg 12.5 Dialy, - Hold for SBP < 110, HR <60 GI/DVT PPx - Protonix - Lovenox <Nerissa Santana A - Last Filed: 03/07/17 13:39> Objective - Vital Signs/Intake and Output Vital Signs (last 24 hours): Temp Pulse Resp BP Pulse Ox 98.5 F 84 15 139/75 97 03/07/17 08:00 03/07/17 10:55 03/07/17 08:00 03/07/17 10:55 03/07/17 08:00 Intake and Output: 03/07/17 03/07/17 06:59 18:59 Intake Total 1500 Balance 1500 - Medications Medications: Current Medications Amlodipine Besylate (Norvasc) 10 mg PO DAILY [facility] Last Admin: 03/07/17 10:55 Dose: 10 mg Aspirin (Aspirin Chewable) 81 mg PO DAILY [facility] Last Admin: 03/07/17 10:54 Dose: 81 mg Carvedilol (Coreg) 12.5 mg PO DAILY [facility] Last Admin: 03/07/17 10:55 Dose: 12.5 mg Clopidogrel Bisulfate (Plavix) 75 mg PO DAILY [facility] Last Admin: 03/07/17 10:54 Dose: 75 mg Divalproex Sodium (Depakote Sprinkles) 125 mg PO TID [facility] PRN Reason: Protocol Last Admin: 03/07/17 10:54 Dose: 125 mg Enoxaparin Sodium (Lovenox) 30 mg SC DAILY [facility] PRN Reason: Protocol Last Admin: 03/07/17 10:55 Dose: 30 mg Haloperidol (Haldol) 0.25 mg PO Q4 PRN; Protocol PRN Reason: Agitation Haloperidol (Haldol) 0.25 mg PO AMHS [facility] PRN Reason: Protocol Last Admin: 03/07/17 12:20 Dose: 0.25 mg Hydralazine HCl (Apresoline) 50 mg PO TID [facility] Last Admin: 03/07/17 10:55 Dose: 50 mg Ceftriaxone Sodium (Rocephin 1 Gram Ivpb) 1 gm in 100 mls @ 100 mls/hr IVPB DAILY [facility] PRN Reason: Protocol Last Admin: 03/07/17 10:54 Dose: 100 mls/hr Dextrose (Dextrose 5% In Water 1000 Ml) 1,000 mls @ 100 mls/hr IV .Q10H [facility] Last Admin: 03/07/17 12:32 Dose: 100 mls/hr Potassium Chloride (Potassium Chloride 10 Meq/100 Ml) 10 meq in 100 mls @ 50 mls/hr IVPB Q2H [facility] Stop: 03/07/17 17:29 Last Admin: 03/07/17 12:21 Dose: 50 mls/hr Isosorbide Mononitrate (Imdur) 60 mg PO DAILY [facility] Last Admin: 03/07/17 10:54 Dose: 60 mg Lactobacillus Acidophilus (Bacid Acidophilus) 1 cap PO BID [facility] Last Admin: 03/07/17 10:54 Dose: 1 cap Lorazepam (Ativan) 0.25 mg PO Q4 PRN PRN Reason: Agitation Last Admin: 03/06/17 21:14 Dose: 0.25 mg Pantoprazole Sodium (Protonix Ec Tab) 40 mg PO 0600 [facility] Last Admin: 03/07/17 07:09 Dose: 40 mg Polyethylene Glycol (Miralax) 17 gm PO DAILY [facility] Last Admin: 03/07/17 10:54 Dose: 17 gm - Labs Labs: 03/07/17 07:30 03/07/17 07:30 Attending/Attestation - Attestation I have personally seen and examined this patient.: Yes I have fully participated in the care of the patient.: Yes I have reviewed all pertinent clinical information, including history, physical exam and plan: Yes Notes (Text): 03/07/17 13:37 86 year old female with past medical history of CAD, hypertension, dementia and Alzheimer's who was sent from [place] due to AMS. She was found to have UTI and started on iv antibiotics. UCx is growing E coli. Psychiatry evaluation was appreciated for agitation and delirium. Overnight events were reviewed. This morning she is more alert although still with confusion. She is on aspirin, plavix, imdur and coreg for history of CAD. CT scan also showed constipation; she is on miralax. Will replete and repeat potassium. Nerissa Santana MD Hospitalist.
[2017-03-07] MEDS ORDERED: Sodium Chloride 0.9% 1,000 ML IV STA ×2 (15:09→15:11)
[2017-03-08] MEDS: Pantoprazole 40 mg EC Tab PO SCH (06:42)
[2017-03-08 06:53] LABS: HEMOGLOBIN 10.7 g/dL (12.0-16.0); MEAN CELL VOLUME 95.2 fl (80.0-105.0); MEAN CORPUSCULAR HEMOGLOBIN 31.8 pg (25.0-35.0); MEAN CORPUSCULAR HGB CONC 33.4 g/dl (31.0-37.0); MEAN PLATELET VOLUME 10.5 fl (7.0-11.0); RBC 3.36 10^6/uL (3.5-6.1); RED CELL DISTRIBUTION WIDTH 14.6 % (11.5-14.5); WHITE BLOOD COUNT 9.2 10^3/ul (4.5-11.0)
[2017-03-08 07:12] LABS: ALBUMIN 3.5 g/dL (3.0-4.8); CALCIUM 9.4 mg/dL (8.4-10.5); MAGNESIUM 1.8 mg/dL (1.7-2.2)
--- NOTE | 2017-03-08 09:53 | PN ---
DATE: 03/07/2017 She is being seen today for a followup consultation. PRESENTATION: The patient is an 86-year-old female seen at bedside. The patient is lethargic, she is sleepy, though she tries to be cooperative with our conversation. Recent labs were reviewed and nurses's notes were reviewed. PHYSICAL EXAMINATION: Her current vitals include temperature of 98.4, pulse rate of 65, blood pressure of 103/59, respirations of 18, and an O2 saturation of 99%. Of note; her final urine culture from 03/05/2017, indicates that she has an E. coli infection. The urine certainly would and could account for her absolute change in status. In review of the notes, it is clear that the patient has not been combative or difficult in this way in the past and UTI can certainly create that sort of a behavior in an elderly female patient. Consult was called due to the agitation that she was experiencing. Once she was admitted on 03/05/2017, she was very combative in the emergency room and on the floor as well. Later, she was seen in consultation by Dr. Grimaldo yesterday, who made some medication changes and the patient has been calmer and more compliant since. MENTAL STATUS EXAM: The patient is alert but lethargic. She is arousable. She knows who she is, but she is disoriented to date, time and place. Her eye contact is fair. Her behavior is very cooperative and pleasant. Mood is blunted. Affect is constricted. Thoughts are repetitive and concrete. She indicates she has difficulty remembering specifics of things, for instance she tells me that she has a son Jovan and then she gets side track on the fact that she cannot remember something important about Jovan and how troubling it is, not to be able to remember on larger details right there and she cannot grasp mind. She denies being suicidal or homicidal. Denies the presence of hallucinations, delusions, or paranoia. Her concentration and focus are poor. Her memory both short and long-term have deficits. Her appetite is improving, and her sleep is definitely improved. She evidentially was awake the first night she came here. She was up till around 2:00 a.m. last night, but has been sleeping off and on since then and she was dozing as I met with her. CURRENT MEDICATIONS: Norvasc, aspirin, Coreg, Rocephin, Plavix, Depakote Sprinkles 125 mg one p.o. t.i.d., Lovenox, and Haldol 0.25 mg one in the morning and one at bedtime. The patient evidentially was up till 2 a.m. I educated the nursing staff that they can use the p.r.n. as necessary. She is additionally on Apresoline, Imdur, acidophilus, Ativan p.r.n., Protonix, MiraLax, and potassium chloride via IV infusion. DIAGNOSTIC IMPRESSION: Depression unspecified by history, Alzheimer's disease, coronary artery disease, hypertension, diabetes type 2, and anxiety with combative behavior. PLAN: The patient appears as if she is improving at this time. We will continue to follow. Ashlie Vallejo APN Geraldine De La Rosa MD [facility]
[2017-03-08] MEDS: Lactobacillus Acidophilus 500 MU Cap PO SCH ×3 (10:00→18:40)
[2017-03-08] MEDS: Divalproex 125 mg EC Sprinkle Cap PO SCH ×4 (10:00→18:40)
--- NOTE | 2017-03-08 14:26 | CP.PCM.PN ---
<Pascual Pena - Last Filed: 03/08/17 14:26> Subjective - Date & Time of Evaluation Date of Evaluation: 03/08/17 Time of Evaluation: 06:17 - Subjective Subjective: Patient was seen and evaluated bedside. Patient was sleeping and woke up but was not interested in talking. Nurse states wrist restraints had to be reordered because patient was getting agitated and combative. Objective - Vital Signs/Intake and Output Vital Signs (last 24 hours): Temp Pulse Resp BP Pulse Ox 97.7 F 64 18 143/71 99 03/08/17 07:00 03/08/17 07:00 03/08/17 07:00 03/08/17 07:00 03/08/17 07:00 Intake and Output: 03/08/17 03/08/17 06:59 18:59 Intake Total 180 Balance 180 - Medications Medications: Current Medications Amlodipine Besylate (Norvasc) 10 mg PO DAILY [facility] Last Admin: 03/07/17 10:55 Dose: 10 mg Aspirin (Aspirin Chewable) 81 mg PO DAILY [facility] Last Admin: 03/07/17 10:54 Dose: 81 mg Carvedilol (Coreg) 12.5 mg PO DAILY [facility] Last Admin: 03/07/17 10:55 Dose: 12.5 mg Clopidogrel Bisulfate (Plavix) 75 mg PO DAILY [facility] Last Admin: 03/07/17 10:54 Dose: 75 mg Divalproex Sodium (Depakote Sprinkles) 125 mg PO TID [facility] PRN Reason: Protocol Last Admin: 03/07/17 17:42 Dose: Not Given Enoxaparin Sodium (Lovenox) 30 mg SC DAILY [facility] PRN Reason: Protocol Last Admin: 03/07/17 10:55 Dose: 30 mg Haloperidol (Haldol) 0.25 mg PO Q4 PRN; Protocol PRN Reason: Agitation Last Admin: 03/08/17 02:43 Dose: 0.25 mg Haloperidol (Haldol) 0.25 mg PO AMHS [facility] PRN Reason: Protocol Last Admin: 03/07/17 21:45 Dose: 0.25 mg Hydralazine HCl (Apresoline) 50 mg PO TID [facility] Last Admin: 03/07/17 14:28 Dose: Not Given Ceftriaxone Sodium (Rocephin 1 Gram Ivpb) 1 gm in 100 mls @ 100 mls/hr IVPB DAILY [facility] PRN Reason: Protocol Last Admin: 03/07/17 10:54 Dose: 100 mls/hr Dextrose (Dextrose 5% In Water 1000 Ml) 1,000 mls @ 100 mls/hr IV .Q10H [facility] Last Admin: 03/08/17 01:06 Dose: 100 mls/hr Isosorbide Mononitrate (Imdur) 60 mg PO DAILY [facility] Last Admin: 03/07/17 10:54 Dose: 60 mg Lactobacillus Acidophilus (Bacid Acidophilus) 1 cap PO BID [facility] Last Admin: 03/07/17 17:43 Dose: Not Given Lorazepam (Ativan) 0.25 mg PO Q4 PRN PRN Reason: Agitation Last Admin: 03/08/17 02:44 Dose: 0.25 mg Pantoprazole Sodium (Protonix Ec Tab) 40 mg PO 0600 [facility] Last Admin: 03/08/17 06:42 Dose: 40 mg Polyethylene Glycol (Miralax) 17 gm PO DAILY [facility] Last Admin: 03/07/17 10:54 Dose: 17 gm - Labs Labs: 03/08/17 06:20 03/08/17 06:20 - Constitutional Appears: Non-toxic, No Acute Distress - Head Exam Head Exam: ATRAUMATIC, NORMAL INSPECTION, NORMOCEPHALIC - Eye Exam Eye Exam: EOMI, Normal appearance - ENT Exam ENT Exam: Mucous Membranes Moist - Neck Exam Neck Exam: absent: Lymphadenopathy, Tenderness - Respiratory Exam Respiratory Exam: Clear to Ausculation Bilateral, NORMAL BREATHING PATTERN - Cardiovascular Exam Cardiovascular Exam: REGULAR RHYTHM - GI/Abdominal Exam GI & Abdominal Exam: Soft. absent: Tenderness - Extremities Exam Extremities Exam: absent: Tenderness - Neurological Exam Neurological Exam: Altered - Skin Skin Exam: Normal Color Assessment and Plan - Assessment and Plan (Free Text) Assessment: 86 yo female with PMH of rhabdomyolysis, HLD, alzheimer's disease, dementia,CAD , HTN, DM2, anxiety admitted for AMS likely 2/2 UTI. Plan: 1. AMS likely 2/2 UTI - UA positive for nitrates and moderate leukocyte esterase - Blood Cultures - no growth - Urine Cultures - Gram Negative Rods- Mercado Sensitive - Ceftriaxone - Aspiration and Fall precautions - Cont. to monitor mental status 2. Constipation - CT findings consistent with constipation, diverticulosis - Miralax - Lactobacillus 3. H/o Dementia/Alzheimer Disease/Anxiety - Acute agitation - Psych consulted (Dr. Dewey) - Recs Appreciated -Haldol 0.25mg PO Q4 PRN -Haldol 0.25 AMHS -Ativan .25 PO Q4 PRN 4. R/o rhabdomyolysis - Total CK- 123 5. Hypokalemia-resolved -K 4.1 -continue to monitor 6. CAD - Cont home medications: Plavix 75 Daily 7. HTN - restart home medications: Norvasc 10, Coreg 12.5 - Hold for SBP < 110, HR <60 9. Hypotension- resolved -patient had epsidoe of hypotension yesterday -given fluid bolus yesterday -BP stable, no intervention at this time -restart home coreg and norvasc GI/DVT PPx - Protonix - Lovenox <Nerissa Santana - Last Filed: 03/08/17 15:02> Objective - Vital Signs/Intake and Output Vital Signs (last 24 hours): Temp Pulse Resp BP Pulse Ox 97.7 F 64 18 143/71 99 03/08/17 07:00 03/08/17 07:00 03/08/17 07:00 03/08/17 07:00 03/08/17 07:00 Intake and Output: 03/08/17 03/08/17 06:59 18:59 Intake Total 180 Balance 180 - Medications Medications: Current Medications Amlodipine Besylate (Norvasc) 10 mg PO DAILY [facility] Last Admin: 03/07/17 10:55 Dose: 10 mg Aspirin (Aspirin Chewable) 81 mg PO DAILY [facility] Last Admin: 03/07/17 10:54 Dose: 81 mg Carvedilol (Coreg) 12.5 mg PO DAILY [facility] Last Admin: 03/07/17 10:55 Dose: 12.5 mg Clopidogrel Bisulfate (Plavix) 75 mg PO DAILY [facility] Last Admin: 03/07/17 10:54 Dose: 75 mg Divalproex Sodium (Depakote Sprinkles) 125 mg PO TID [facility] PRN Reason: Protocol Last Admin: 03/07/17 17:42 Dose: Not Given Enoxaparin Sodium (Lovenox) 30 mg SC DAILY [facility] PRN Reason: Protocol Last Admin: 03/07/17 10:55 Dose: 30 mg Haloperidol (Haldol) 0.25 mg PO Q4 PRN; Protocol PRN Reason: Agitation Last Admin: 03/08/17 02:43 Dose: 0.25 mg Haloperidol (Haldol) 0.25 mg PO AMHS [facility] PRN Reason: Protocol Last Admin: 03/07/17 21:45 Dose: 0.25 mg Hydralazine HCl (Apresoline) 50 mg PO TID [facility] Last Admin: 03/07/17 14:28 Dose: Not Given Ceftriaxone Sodium (Rocephin 1 Gram Ivpb) 1 gm in 100 mls @ 100 mls/hr IVPB DAILY [facility] PRN Reason: Protocol Last Admin: 03/07/17 10:54 Dose: 100 mls/hr Dextrose (Dextrose 5% In Water 1000 Ml) 1,000 mls @ 100 mls/hr IV .Q10H [facility] Last Admin: 03/08/17 01:06 Dose: 100 mls/hr Isosorbide Mononitrate (Imdur) 60 mg PO DAILY [facility] Last Admin: 03/07/17 10:54 Dose: 60 mg Lactobacillus Acidophilus (Bacid Acidophilus) 1 cap PO BID [facility] Last Admin: 03/07/17 17:43 Dose: Not Given Lorazepam (Ativan) 0.25 mg PO Q4 PRN PRN Reason: Agitation Last Admin: 03/08/17 02:44 Dose: 0.25 mg Pantoprazole Sodium (Protonix Ec Tab) 40 mg PO 0600 [facility] Last Admin: 03/08/17 06:42 Dose: 40 mg Polyethylene Glycol (Miralax) 17 gm PO DAILY [facility] Last Admin: 03/07/17 10:54 Dose: 17 gm - Labs Labs: 03/08/17 06:20 03/08/17 06:20 Attending/Attestation - Attestation I have personally seen and examined this patient.: Yes I have fully participated in the care of the patient.: Yes I have reviewed all pertinent clinical information, including history, physical exam and plan: Yes Notes (Text): 03/08/17 14:58 86 year old female with past medical history of CAD, hypertension, dementia and Alzheimer's who was sent from [place] due to AMS. She was found to have UTI and started on iv antibiotics. UCx is growing E coli. Patient is on ativan and haldol still with intermittent episodes of agitation. Will request for psychiatry follow up. Yesterday patient was hypotensive which responded to fluids. Her bp medications were held. Today blood pressure have improved; can slowly begin to resume medications and monitor. CT scan also showed constipation; she is on miralax. Nerissa Santana MD Hospitalist.
--- NOTE | 2017-03-08 15:27 | PN ---
DATE: 03/08/2017 SUBJECTIVE: The patient was admitted on the medical side for evaluation of change in mental status. The patient was found to have urinary tract infection. Initially, the patient was seen by Dr. Grimaldo as well as followed up by nurse practitioner yesterday. The patient was followed up with nurse practitioner today. The patient appears to be lethargic, not willing to have interview, was able to open her eyes. This advertising copywriter discussed case with the with nurse who is taking care of her. The patient has tendency of not willing to participate in interview. The patient keeps repeating "we will have to do it now." The patient complained that she feels cold, extra blanket was provided. The patient was refusing to eat at the morning time, reported that she was not hungry. The patient requires to have wrist restraints because the patient has combative behavior, was pulling IV lines from her which deviated from the patient's baseline. Medications reviewed. Labs reviewed. PHYSICAL EXAMINATION: VITAL SIGNS: The patient vital signs are stable. Temperature 97.7, pulse 64, blood pressure 143/71, respirations 18, oxygen saturation is 99. MEDICATIONS: Norvasc, aspirin, Coreg, Rocephin IV push, Plavix, dextrose, Depakote Sprinkle 125 mg three times a day schedule, Lovenox, Haldol was started by Dr. Grimaldo 0.25 mg four times a day as needed. The patient required only 2 doses, most recent was today and Haldol 0.25 mg twice a day scheduled. The patient is on hydralazine, Imdur, Ativan 0.25 mg p.o. q. 4 h. as needed. Most recent dose was today at the morning time, Protonix and Maalox. LABORATORY DATA: Reviewed. Hemoglobin and hematocrit 10.7 and 32.0. Chemistry reviewed. Urinalysis, leukocyte esterase was positive, moderate and nitrate positive. Microbiology, E. coli in urine. Reports reviewed as well as discussed with nurse practitioner, Ashlie Vallejo. Mental status examination is as described above. Patient not willing to have an interview. Laying with her eyes closed. The patient was not answering for the questions. IMPRESSION: The patient has history of Alzheimer dementia with psychosis, change in mental status is related to urinary tract infection and delirium, which seems to be improving. The patient has multiple medical issues. Please see medical team notes for more detailed information. PLAN: Continue current management. The patient was started on Haldol by Dr. Grimaldo, will continue that as well as schedule dose of Haldol 25 mg twice a day as well as Ativan, will continue that. The patient is on antibiotics. Will monitor mental status very closely. We will hope that patient will improve. Thank you very much for letting me participate in care of your patient. Should you have any questions, give me a call back Geraldine De La Rosa MD
[2017-03-08] MEDS: cefTRIAXone 1 gm 1 GM/100 ML BAG IVPB SCH (16:12)
[2017-03-08] MEDS: POLYETHYLENE GLYCOL 3350 17 GM/Dose PACKET PO SCH (18:54)
[2017-03-08] MEDS: Enoxaparin 30 mg Syringe SC SCH (18:57)
[2017-03-09] MEDS: Pantoprazole 40 mg EC Tab PO SCH (07:20)
[2017-03-09 08:26] LABS: HEMOGLOBIN 11.5 g/dL (12.0-16.0); MEAN CELL VOLUME 95.9 fl (80.0-105.0); MEAN CORPUSCULAR HEMOGLOBIN 31.5 pg (25.0-35.0); MEAN CORPUSCULAR HGB CONC 32.9 g/dl (31.0-37.0); MEAN PLATELET VOLUME 10.3 fl (7.0-11.0); RBC 3.65 10^6/uL (3.5-6.1); RED CELL DISTRIBUTION WIDTH 14.5 % (11.5-14.5); WHITE BLOOD COUNT 9.1 10^3/ul (4.5-11.0)
[2017-03-09 08:34] LABS: ALBUMIN 3.7 g/dL (3.0-4.8); ALT/SGPT 30 U/L (7-56); AST/SGOT 29 U/L (14-36); BLOOD UREA NITROGEN 9 mg/dL (7-21); CALCIUM 9.7 mg/dL (8.4-10.5); GFR AFRICAN-AMERICAN > 60; GFR NON-AFRICAN AMERICAN 53
--- NOTE | 2017-03-09 11:53 | CP.PCM.PN ---
<Pascual Pena - Last Filed: 03/09/17 15:49> Subjective - Date & Time of Evaluation Date of Evaluation: 03/09/17 Time of Evaluation: 06:00 - Subjective Subjective: Patient seen and evaluated bedside. Patient was annoyed and did not want to speak. She said she had not eaten breakfast and might eat it later if she wants to. She did not have any other complaints. Objective - Vital Signs/Intake and Output Vital Signs (last 24 hours): Temp Pulse Resp BP Pulse Ox 97.7 F 64 20 130/52 L 100 03/08/17 07:00 03/08/17 16:23 03/08/17 16:23 03/08/17 16:23 03/08/17 16:23 Intake and Output: 03/09/17 03/09/17 06:59 18:59 Intake Total 720 Balance 720 - Medications Medications: Current Medications Amlodipine Besylate (Norvasc) 10 mg PO DAILY [facility] Last Admin: 03/07/17 10:55 Dose: 10 mg Aspirin (Aspirin Chewable) 81 mg PO DAILY [facility] Last Admin: 03/08/17 18:38 Dose: 81 mg Carvedilol (Coreg) 12.5 mg PO DAILY [facility] Last Admin: 03/07/17 10:55 Dose: 12.5 mg Clopidogrel Bisulfate (Plavix) 75 mg PO DAILY [facility] Last Admin: 03/08/17 18:38 Dose: 75 mg Divalproex Sodium (Depakote Sprinkles) 125 mg PO TID [facility] PRN Reason: Protocol Last Admin: 03/08/17 18:40 Dose: 125 mg Enoxaparin Sodium (Lovenox) 30 mg SC DAILY [facility] PRN Reason: Protocol Last Admin: 03/08/17 18:57 Dose: 30 mg Haloperidol (Haldol) 0.25 mg PO Q4 PRN; Protocol PRN Reason: Agitation Last Admin: 03/09/17 02:16 Dose: 0.25 mg Hydralazine HCl (Apresoline) 50 mg PO TID [facility] Last Admin: 03/07/17 14:28 Dose: Not Given Ceftriaxone Sodium (Rocephin 1 Gram Ivpb) 1 gm in 100 mls @ 100 mls/hr IVPB DAILY [facility] PRN Reason: Protocol Last Admin: 03/08/17 16:12 Dose: 100 mls/hr Dextrose (Dextrose 5% In Water 1000 Ml) 1,000 mls @ 100 mls/hr IV .Q10H [facility] Last Admin: 03/08/17 01:06 Dose: 100 mls/hr Isosorbide Mononitrate (Imdur) 60 mg PO DAILY [facility] Last Admin: 03/07/17 10:54 Dose: 60 mg Lactobacillus Acidophilus (Bacid Acidophilus) 1 cap PO BID [facility] Last Admin: 03/08/17 18:40 Dose: 1 cap Lorazepam (Ativan) 0.25 mg PO Q4 PRN PRN Reason: Agitation Last Admin: 03/09/17 02:15 Dose: 0.25 mg Pantoprazole Sodium (Protonix Ec Tab) 40 mg PO 0600 [facility] Last Admin: 03/09/17 07:20 Dose: Not Given Polyethylene Glycol (Miralax) 17 gm PO DAILY [facility] Last Admin: 03/08/17 18:54 Dose: 17 gm Quetiapine Fumarate (Seroquel) 12.5 mg PO HS [facility] PRN Reason: Protocol - Labs Labs: 03/09/17 08:00 03/09/17 08:00 - Constitutional Appears: Non-toxic, No Acute Distress - Head Exam Head Exam: ATRAUMATIC, NORMAL INSPECTION, NORMOCEPHALIC - Eye Exam Eye Exam: EOMI, Normal appearance - ENT Exam ENT Exam: Mucous Membranes Moist - Respiratory Exam Respiratory Exam: Clear to Ausculation Bilateral, NORMAL BREATHING PATTERN - Cardiovascular Exam Cardiovascular Exam: REGULAR RHYTHM, +S1, +S2 - GI/Abdominal Exam GI & Abdominal Exam: Normal Bowel Sounds - Extremities Exam Extremities Exam: absent: Pedal Edema, Tenderness - Neurological Exam Neurological Exam: Altered, Awake. absent: Oriented x3 - Psychiatric Exam Psychiatric exam: Agitated Assessment and Plan - Assessment and Plan (Free Text) Assessment: 86 yo female with PMH of rhabdomyolysis, HLD, alzheimer's disease, dementia,CAD , HTN, DM2, anxiety admitted for AMS likely 2/2 UTI. Plan: 1. AMS likely 2/2 UTI - UA positive for nitrates and moderate leukocyte esterase - Blood Cultures - no growth - Urine Cultures - Gram Negative Rods- Mercado Sensitive - Switched from IV ceftriaxone to Bactrim PO BID - Aspiration and Fall precautions - Cont. to monitor mental status 2. Constipation - CT findings consistent with constipation, diverticulosis - Miralax - Lactobacillus 3. H/o Dementia/Alzheimer Disease/Anxiety - Acute agitation - Psych consulted (Dr. Dewey) - Recs Appreciated -Haldol 0.25mg PO Q4 PRN -Haldol 0.25 AMHS -Ativan .25 PO Q4 PRN 4. R/o rhabdomyolysis - Total CK- 123 5. Hypokalemia-resolved -K 4.3 -continue to monitor 6. CAD - Cont home medications: Plavix 75 Daily 7. HTN - Continue Norvasc 10, Coreg 12.5 - Hold for SBP < 110, HR <60 9. Hypotension- resolved -patient had epsidoe of hypotension yesterday -given fluid bolus yesterday -BP stable, no intervention at this time -restart home coreg and norvasc 10. Cough -robitussin given GI/DVT PPx - Protonix - Lovenox <Nerissa Santana - Last Filed: 03/09/17 15:57> Objective - Vital Signs/Intake and Output Vital Signs (last 24 hours): Temp Pulse Resp BP Pulse Ox 97.7 F 71 20 177/72 H 100 03/08/17 07:00 03/09/17 12:00 03/08/17 16:23 03/09/17 12:01 03/08/17 16:23 Intake and Output: 03/09/17 03/09/17 06:59 18:59 Intake Total 720 240 Balance 720 240 - Medications Medications: Current Medications Amlodipine Besylate (Norvasc) 10 mg PO DAILY [facility] Last Admin: 03/09/17 12:01 Dose: 10 mg Aspirin (Aspirin Chewable) 81 mg PO DAILY [facility] Last Admin: 03/09/17 12:01 Dose: 81 mg Carvedilol (Coreg) 12.5 mg PO DAILY [facility] Last Admin: 03/09/17 12:00 Dose: 12.5 mg Clopidogrel Bisulfate (Plavix) 75 mg PO DAILY [facility] Last Admin: 03/09/17 12:01 Dose: 75 mg Enoxaparin Sodium (Lovenox) 30 mg SC DAILY [facility] PRN Reason: Protocol Last Admin: 03/09/17 13:53 Dose: Not Given Hydralazine HCl (Apresoline) 50 mg PO TID [facility] Last Admin: 03/07/17 14:28 Dose: Not Given Dextrose (Dextrose 5% In Water 1000 Ml) 1,000 mls @ 100 mls/hr IV .Q10H [facility] Last Admin: 03/08/17 01:06 Dose: 100 mls/hr Isosorbide Mononitrate (Imdur) 60 mg PO DAILY [facility] Last Admin: 03/07/17 10:54 Dose: 60 mg Lactobacillus Acidophilus (Bacid Acidophilus) 1 cap PO BID [facility] Last Admin: 03/09/17 12:00 Dose: 1 cap Lorazepam (Ativan) 0.25 mg PO Q4 PRN PRN Reason: Agitation Last Admin: 03/09/17 12:01 Dose: 0.25 mg Pantoprazole Sodium (Protonix Ec Tab) 40 mg PO 0600 [facility] Last Admin: 03/09/17 07:20 Dose: Not Given Polyethylene Glycol (Miralax) 17 gm PO DAILY [facility] Last Admin: 03/09/17 13:54 Dose: Not Given Risperidone (Risperdal Tab) 0.5 mg PO AMHS [facility] PRN Reason: Protocol Trimethoprim/Sulfamethoxazole (Bactrim Ds Tab) 1 tab PO BID [facility] PRN Reason: Protocol - Labs Labs: 03/09/17 08:00 03/09/17 08:00 Attending/Attestation - Attestation I have personally seen and examined this patient.: Yes I have fully participated in the care of the patient.: Yes I have reviewed all pertinent clinical information, including history, physical exam and plan: Yes Notes (Text): 03/09/17 15:53 86 year old female with past medical history of CAD, hypertension, dementia and Alzheimer's who was sent from [place] due to AMS. She has on and off episodes of agitation. Case was discussed with psychiatrist who will review and adjust her medications. She is on antibiotics for E Coli UTI. Will switch to po for now as she is refusing iv access. Her BP medications were held two days prior due to hypotensive episode which improved after bolus. Will slowly resume blood pressure medications as tolerated. She is on miralax for constipation. Nerissa Santana MD Hospitalist.
[2017-03-09] MEDS: Divalproex 125 mg EC Sprinkle Cap PO SCH ×2 (11:59→13:53)
[2017-03-09] MEDS: Lactobacillus Acidophilus 500 MU Cap PO SCH ×2 (12:00→19:17)
[2017-03-09] MEDS: Enoxaparin 30 mg Syringe SC SCH (13:53)
[2017-03-09] MEDS: POLYETHYLENE GLYCOL 3350 17 GM/Dose PACKET PO SCH (13:54)
[2017-03-09] MEDS: cefTRIAXone 1 gm 1 GM/100 ML BAG IVPB SCH (13:55)
[2017-03-09] MEDS: Tmp-Smz 800 mg-160 mg DS Tab PO SCH (19:16)
[2017-03-09] MEDS ORDERED: guaiFENesin 100 mg/5 ml Syrup UD PO PRN ×2 (20:55→21:00)
[2017-03-10] MEDS: Pantoprazole 40 mg EC Tab PO SCH (06:14)
--- NOTE | 2017-03-10 08:49 | PN ---
DATE: 03/09/2017 She is being seen today for followup consultation. PRESENTATION: The patient is an 86-year-old female seen at bedside. She is in self restraints and she is lethargic. The patient's original consult for Psychiatry was ordered due to agitation with history of dementia. The patient was [facility] behavior. Nursing notes were reviewed as well as current labs and vital signs. The patient today is not very communicative. She answers to her name. She becomes irritable when I try to converse with her. I called her daughter, Maria Fernanda Montelongo at [phone] to discuss the medication changes with her. In view of the fact that the patient is not compliant with taking medication pills by mouth. I talked with her about changing her Depakote Sprinkles to Depakene liquid with slight increase,which would be easier for the nurses to administer into her mouth as well as discontinuing her Haldol and starting her on low dose of Risperdal twice a day again in a liquid form to make it easier to give to the patient. She is inconsistently waking up at night and having difficulties. She pulled out her IV, so it really is necessary to see if we can make the patient more comfortable so that we can eliminate the restraints. She is confused most of the time. OBJECTIVE: VITAL SIGNS: Her current vital signs include blood pressure of 177/72, O2 sat of 100 with a respiratory rate of 20. DIAGNOSTIC IMPRESSION: Dementia and urinary tract infection. PLAN: Medication changes were consented to by the patient's daughter. She indicates that she and other family members live a distance away, so it is difficult for them to visit often, which placed mother was doing and working to help alleviate these behaviors, so the medication changes were done with the daughter's approval. According to notes, the patient's daughter is seeking power of attorney at law at this point in time. We will continue to follow the patient until the patient appears to be at her previous baseline. Ashlie Vallejo APN [facility] # [id number]
[2017-03-10] MEDS: Tmp-Smz 800 mg-160 mg DS Tab PO SCH ×2 (10:00→18:18)
[2017-03-10] MEDS: Lactobacillus Acidophilus 500 MU Cap PO SCH ×2 (10:00→18:00)
[2017-03-10] MEDS: POLYETHYLENE GLYCOL 3350 17 GM/Dose PACKET PO SCH (10:00)
--- NOTE | 2017-03-10 11:42 | CP.PCM.PN ---
<Pascual Pena - Last Filed: 03/10/17 17:01> Subjective - Date & Time of Evaluation Date of Evaluation: 03/10/17 Time of Evaluation: 06:00 - Subjective Subjective: Patient seen and evaluated bedside, patient was crying for no apparent reason. Was consoled, did not want to talk or continue answering questions. Denied abdominal pain. Nurse reported patient had to be place don restraints again for aggression and scratching staff. Objective - Vital Signs/Intake and Output Vital Signs (last 24 hours): Temp Pulse Resp BP Pulse Ox 99.2 F 71 20 177/72 H 100 03/10/17 06:00 03/09/17 12:00 03/08/17 16:23 03/09/17 12:01 03/08/17 16:23 Intake and Output: 03/10/17 03/10/17 06:59 18:59 Intake Total 240 Balance 240 - Medications Medications: Current Medications Amlodipine Besylate (Norvasc) 10 mg PO DAILY [facility] Last Admin: 03/09/17 12:01 Dose: 10 mg Aspirin (Aspirin Chewable) 81 mg PO DAILY [facility] Last Admin: 03/09/17 12:01 Dose: 81 mg Carvedilol (Coreg) 12.5 mg PO DAILY [facility] Last Admin: 03/09/17 12:00 Dose: 12.5 mg Clopidogrel Bisulfate (Plavix) 75 mg PO DAILY [facility] Last Admin: 03/09/17 12:01 Dose: 75 mg Enoxaparin Sodium (Lovenox) 30 mg SC DAILY [facility] PRN Reason: Protocol Last Admin: 03/09/17 13:53 Dose: Not Given Guaifenesin (Robitussin) 100 mg PO Q6H PRN PRN Reason: Cough Last Admin: 03/09/17 22:40 Dose: 100 mg Hydralazine HCl (Apresoline) 50 mg PO TID [facility] Last Admin: 03/07/17 14:28 Dose: Not Given Dextrose (Dextrose 5% In Water 1000 Ml) 1,000 mls @ 100 mls/hr IV .Q10H [facility] Last Admin: 03/08/17 01:06 Dose: 100 mls/hr Isosorbide Mononitrate (Imdur) 60 mg PO DAILY [facility] Last Admin: 03/07/17 10:54 Dose: 60 mg Lactobacillus Acidophilus (Bacid Acidophilus) 1 cap PO BID [facility] Last Admin: 03/09/17 19:17 Dose: 1 cap Lorazepam (Ativan) 0.25 mg PO Q4 PRN PRN Reason: Agitation Last Admin: 03/09/17 19:16 Dose: 0.25 mg Pantoprazole Sodium (Protonix Ec Tab) 40 mg PO 0600 [facility] Last Admin: 03/10/17 06:14 Dose: Not Given Polyethylene Glycol (Miralax) 17 gm PO DAILY [facility] Last Admin: 03/09/17 13:54 Dose: Not Given Risperidone (Risperdal Tab) 0.5 mg PO AMHS [facility] PRN Reason: Protocol Last Admin: 03/09/17 22:40 Dose: 0.5 mg Trimethoprim/Sulfamethoxazole (Bactrim Ds Tab) 1 tab PO BID [facility] PRN Reason: Protocol Last Admin: 03/09/17 19:16 Dose: 1 tab - Labs Labs: 03/09/17 08:00 03/09/17 08:00 - Constitutional Appears: Non-toxic, No Acute Distress - Head Exam Head Exam: ATRAUMATIC, NORMAL INSPECTION, NORMOCEPHALIC - Eye Exam Eye Exam: EOMI, Normal appearance - ENT Exam ENT Exam: Mucous Membranes Moist - Neck Exam Neck Exam: absent: Lymphadenopathy, Tenderness - Respiratory Exam Respiratory Exam: Clear to Ausculation Bilateral, NORMAL BREATHING PATTERN - Cardiovascular Exam Cardiovascular Exam: REGULAR RHYTHM - GI/Abdominal Exam GI & Abdominal Exam: absent: Soft, Tenderness - Extremities Exam Extremities Exam: Normal Inspection - Neurological Exam Neurological Exam: Altered - Psychiatric Exam Psychiatric exam: Agitated - Skin Skin Exam: Normal Color, Warm Assessment and Plan - Assessment and Plan (Free Text) Assessment: 86 yo female with PMH of rhabdomyolysis, HLD, alzheimer's disease, dementia,CAD , HTN, DM2, anxiety admitted for AMS likely 2/2 UTI. Plan: 1. AMS likely 2/2 UTI - UA positive for nitrates and moderate leukocyte esterase - Blood Cultures - no growth - Urine Cultures - Gram Negative Rods- Mercado Sensitive - Continue Bactrim PO BID - Aspiration and Fall precautions - Cont. to monitor mental status 2. Constipation - CT findings consistent with constipation, diverticulosis - Miralax - Lactobacillus 3. H/o Dementia/Alzheimer Disease/Anxiety - Acute agitation - Psych consulted (Dr. Dewey) - Recs Appreciated -Haldol 0.25mg PO Q4 PRN -Haldol 0.25 AMHS -Ativan .25 PO Q4 PRN 4. R/o rhabdomyolysis - Total CK- 123 5. Hypokalemia-resolved -continue to monitor 6. CAD - Cont home medications: Plavix 75 Daily 7. HTN - BP: 177/72 - restarted Hydralizine 50 TID - Continue Norvasc 10, Coreg 12.5 - Hold for SBP < 110, HR <60 9. Hypotension- resolved -patient had epsidoe of hypotension yesterday -given fluid bolus yesterday -BP stable, no intervention at this time 10. Cough -robitussin GI/DVT PPx - Protonix - Lovenox <Nerissa Santana - Last Filed: 03/10/17 17:12> Objective - Vital Signs/Intake and Output Vital Signs (last 24 hours): Temp Pulse Resp BP Pulse Ox 99.2 F 71 20 177/72 H 100 03/10/17 06:00 03/09/17 12:00 03/08/17 16:23 03/09/17 12:01 03/08/17 16:23 Intake and Output: 03/10/17 03/10/17 06:59 18:59 Intake Total 240 Balance 240 - Medications Medications: Current Medications Amlodipine Besylate (Norvasc) 10 mg PO DAILY [facility] Last Admin: 03/09/17 12:01 Dose: 10 mg Aspirin (Aspirin Chewable) 81 mg PO DAILY [facility] Last Admin: 03/09/17 12:01 Dose: 81 mg Carvedilol (Coreg) 12.5 mg PO DAILY [facility] Last Admin: 03/09/17 12:00 Dose: 12.5 mg Clopidogrel Bisulfate (Plavix) 75 mg PO DAILY [facility] Last Admin: 03/09/17 12:01 Dose: 75 mg Enoxaparin Sodium (Lovenox) 30 mg SC DAILY [facility] PRN Reason: Protocol Last Admin: 03/09/17 13:53 Dose: Not Given Guaifenesin (Robitussin) 100 mg PO Q6H PRN PRN Reason: Cough Last Admin: 03/09/17 22:40 Dose: 100 mg Hydralazine HCl (Apresoline) 50 mg PO TID [facility] Last Admin: 03/07/17 14:28 Dose: Not Given Dextrose (Dextrose 5% In Water 1000 Ml) 1,000 mls @ 100 mls/hr IV .Q10H [facility] Last Admin: 03/08/17 01:06 Dose: 100 mls/hr Isosorbide Mononitrate (Imdur) 60 mg PO DAILY [facility] Last Admin: 03/07/17 10:54 Dose: 60 mg Lactobacillus Acidophilus (Bacid Acidophilus) 1 cap PO BID [facility] Last Admin: 03/09/17 19:17 Dose: 1 cap Lorazepam (Ativan) 0.25 mg PO Q4 PRN PRN Reason: Agitation Last Admin: 03/09/17 19:16 Dose: 0.25 mg Pantoprazole Sodium (Protonix Ec Tab) 40 mg PO 0600 [facility] Last Admin: 03/10/17 06:14 Dose: Not Given Polyethylene Glycol (Miralax) 17 gm PO DAILY [facility] Last Admin: 03/09/17 13:54 Dose: Not Given Risperidone (Risperdal Tab) 0.5 mg PO AMHS [facility] PRN Reason: Protocol Last Admin: 03/09/17 22:40 Dose: 0.5 mg Trimethoprim/Sulfamethoxazole (Bactrim Ds Tab) 1 tab PO BID [facility] PRN Reason: Protocol Last Admin: 03/09/17 19:16 Dose: 1 tab - Labs Labs: 03/09/17 08:00 03/09/17 08:00 Attending/Attestation - Attestation I have personally seen and examined this patient.: Yes I have fully participated in the care of the patient.: Yes I have reviewed all pertinent clinical information, including history, physical exam and plan: Yes Notes (Text): 03/10/17 17:05 86 year old female with past medical history of CAD, hypertension, dementia and Alzheimer's who was sent [place] due to [place]. Today she continues to be confused and agitated at times. Psychiatry follow up is requested. She is on antibiotics for E Coli UTI. Continue with home medications for CAD/HTN. She is on miralax for constipation. Nerissa Santana MD Hospitalist.
[2017-03-10] MEDS: Enoxaparin 30 mg Syringe SC SCH (18:22)
[2017-03-11] MEDS ORDERED: Cefepime IV 2 gm in NS 2 GM/100 ML BAG IVPB STA (03:47)
[2017-03-11 04:18] LABS: BASO # 0.02 K/mm3 (0.0-2.0); BASO % 0.3 % (0.0-3.0); EOS % 0.1 % (1.5-5.0); GRAN # 5.14 (1.4-6.5); GRAN % 66.9 % (50.0-68.0); HEMOGLOBIN 11.9 g/dL (12.0-16.0); LYMPH # 1.5 (1.2-3.4); LYMPH % 19.3 % (22.0-35.0); MEAN CELL VOLUME 96.2 fl (80.0-105.0); MEAN CORPUSCULAR HEMOGLOBIN 32.5 pg (25.0-35.0); MEAN CORPUSCULAR HGB CONC 33.8 g/dl (31.0-37.0); MEAN PLATELET VOLUME 10.9 fl (7.0-11.0); MONO % 13.4 % (1.0-6.0); RBC 3.66 10^6/uL (3.5-6.1); WHITE BLOOD COUNT 7.7 10^3/ul (4.5-11.0)
[2017-03-11 06:03] LABS: URINE BILIRUBIN NEGATIVE (NEGATIVE); URINE BLOOD NEGATIVE (NEGATIVE); URINE GLUCOSE (UA) NEGATIVE (NEGATIVE); URINE LEUKOCYTE ESTERASE TRACE Leu/uL (NEGATIVE); URINE NITRATE NEGATIVE (NEGATIVE); URINE PROTEIN TRACE mg/dL (<30 mg/dL)
[2017-03-11 06:06] LABS: URINE APPEARANCE CLEAR (CLEAR); URINE COLOR YELLOW (YELLOW)
[2017-03-11 06:24] LABS: URINE BACTERIA RARE (NEG); URINE HYALINE CAST 0 - 2 /hpf; URINE RBC 0 - 2 /hpf (0-2)
[2017-03-11 06:25] LABS: URINE FINE GRANULAR CAST 0 - 2 /hpf (0-2)
[2017-03-11] MEDS: Pantoprazole 40 mg EC Tab PO SCH (07:19)
--- NOTE | 2017-03-11 09:21 | PN ---
DATE: 03/10/2017 PRESENTATION: The patient is an 86-year-old female, seen at bedside. She is groggy. She is in self restraints. In review of the nursing notes, she has been combative off and on, and she has been scratching at the nurses. The patient's consult was originally called for agitation and dementia. The patient was admitted to the hospital to [facility] on 03/05/2017. She was admitted for combative behavior. She was subsequently found to have a urinary tract infection, and as that is clearing, there were some hope that she will return to her baseline which does not include combativeness. Today, she is lethargic. She responds to her name. She opens her eyes and says to me "Do I really have to talk to you today, do you really have to do this, and she gets a little irritable if I persist. MENTAL STATUS EXAM: The patient is alert and is responsive to her name, but that is her only of orientation. She is at times somewhat oriented. She has spoken to me in the past about her family and different superficial topics. Today, she is not up to that. She is in restraints for her own safety as she has tried get out of bed and also for the safety of the nursing staff because she has been combative towards them. VITAL SIGNS: Current vital signs include temperature of 99.2, blood pressure of 150/68, respiratory rate of 17, and an O2 sat of 97. PLAN: Chart has been reviewed. Labs have been reviewed as well as nursing notes. There is a note from her manager social media indicating that the patient can return to [facility] when medically cleared as per in terms of the patient's current status, and she has not returned to her baseline prior to coming into the hospital. We will continue to follow. Ashlie Vallejo APN
--- NOTE | 2017-03-11 10:08 | RAD ---
PROCEDURE: CHEST RADIOGRAPH, 1 VIEW HISTORY: 102.7*F COMPARISON: 03/05/2017 FINDINGS: LUNGS: Clear. PLEURA: No pneumothorax or pleural fluid seen. CARDIOVASCULAR: Normal. OSSEOUS STRUCTURES: No significant abnormalities. VISUALIZED UPPER ABDOMEN: Normal. OTHER FINDINGS: None. IMPRESSION: No active disease.
[2017-03-11] MEDS: Enoxaparin 30 mg Syringe SC SCH ×2 (10:26→12:03)
[2017-03-11] MEDS: POLYETHYLENE GLYCOL 3350 17 GM/Dose PACKET PO SCH ×2 (10:26→12:03)
[2017-03-11] MEDS: Tmp-Smz 800 mg-160 mg DS Tab PO SCH (10:26)
[2017-03-11] MEDS: Lactobacillus Acidophilus 500 MU Cap PO SCH ×3 (10:27→18:31)
[2017-03-11] MEDS: Valproic Acid 250 mg/5 ml UD Cup PO SCH ×4 (10:35→18:31)
[2017-03-11 10:45] LABS: ALB/GLOB RATIO 1.1 (1.1-1.8); ALBUMIN 3.7 g/dL (3.0-4.8); CALCIUM 9.5 mg/dL (8.4-10.5)
--- NOTE | 2017-03-11 12:39 | CP.PCM.PN ---
<Pascual Pena - Last Filed: 03/11/17 14:35> Subjective - Date & Time of Evaluation Date of Evaluation: 03/11/17 Time of Evaluation: 06:00 - Subjective Subjective: Patient seen and examined bedside. Patient was calm, not wearing restraints. She denied any pain and was eating okay. Overnight she had a fever of 102.7. Denies any chest pain, shortness of breath, sore throat, abdominal pain or nausea. Objective - Vital Signs/Intake and Output Vital Signs (last 24 hours): Temp Pulse Resp BP Pulse Ox 101.9 F H 64 20 140/66 98 03/11/17 10:37 03/11/17 10:26 03/11/17 00:30 03/11/17 10:26 03/11/17 00:30 Intake and Output: 03/11/17 03/11/17 06:59 18:59 Intake Total 120 Balance 120 - Medications Medications: Current Medications Acetaminophen (Tylenol 325mg Tab) 650 mg PO Q6H PRN PRN Reason: Fever >100.4 F Acetaminophen (Tylenol 650 Mg Supp) 650 mg RC Q6H PRN PRN Reason: Fever >100.4 F Last Admin: 03/11/17 01:11 Dose: 650 mg Amlodipine Besylate (Norvasc) 10 mg PO DAILY [facility] Last Admin: 03/11/17 10:25 Dose: 10 mg Aspirin (Aspirin Chewable) 81 mg PO DAILY [facility] Last Admin: 03/11/17 10:25 Dose: 81 mg Carvedilol (Coreg) 12.5 mg PO DAILY [facility] Last Admin: 03/11/17 10:25 Dose: 12.5 mg Clopidogrel Bisulfate (Plavix) 75 mg PO DAILY [facility] Last Admin: 03/11/17 10:26 Dose: 75 mg Enoxaparin Sodium (Lovenox) 30 mg SC DAILY [facility] PRN Reason: Protocol Last Admin: 03/11/17 10:26 Dose: 30 mg Guaifenesin (Robitussin) 100 mg PO Q6H PRN PRN Reason: Cough Last Admin: 03/09/17 22:40 Dose: 100 mg Hydralazine HCl (Apresoline) 50 mg PO TID [facility] Last Admin: 03/11/17 10:26 Dose: 50 mg Dextrose (Dextrose 5% In Water 1000 Ml) 1,000 mls @ 100 mls/hr IV .Q10H [facility] Last Admin: 03/08/17 01:06 Dose: 100 mls/hr Isosorbide Mononitrate (Imdur) 60 mg PO DAILY [facility] Last Admin: 03/07/17 10:54 Dose: 60 mg Lactobacillus Acidophilus (Bacid Acidophilus) 1 cap PO BID [facility] Last Admin: 03/11/17 10:27 Dose: 1 cap Lorazepam (Ativan) 0.25 mg PO Q4 PRN PRN Reason: Agitation Last Admin: 03/09/17 19:16 Dose: 0.25 mg Pantoprazole Sodium (Protonix Ec Tab) 40 mg PO 0600 [facility] Last Admin: 03/11/17 07:19 Dose: Not Given Polyethylene Glycol (Miralax) 17 gm PO DAILY [facility] Last Admin: 03/11/17 10:26 Dose: 17 gm Risperidone (Risperdal Tab) 0.5 mg PO AMHS [facility] PRN Reason: Protocol Last Admin: 03/11/17 10:18 Dose: 0.5 mg Valproate Sodium (Depakene Oral Soln) 125 mg PO TID [facility] Last Admin: 03/11/17 10:35 Dose: 125 mg - Labs Labs: 03/11/17 03:55 03/11/17 07:45 - Constitutional Appears: Non-toxic, No Acute Distress - Head Exam Head Exam: ATRAUMATIC, NORMAL INSPECTION, NORMOCEPHALIC - Eye Exam Eye Exam: EOMI, Normal appearance - ENT Exam ENT Exam: Mucous Membranes Moist - Neck Exam Neck Exam: absent: Lymphadenopathy, Tenderness - Respiratory Exam Respiratory Exam: Clear to Ausculation Bilateral, NORMAL BREATHING PATTERN - Cardiovascular Exam Cardiovascular Exam: REGULAR RHYTHM, +S1, +S2 - Extremities Exam Extremities Exam: Normal Inspection - Neurological Exam Neurological Exam: Alert. absent: Oriented x3 - Psychiatric Exam Psychiatric exam: Normal Mood - Skin Skin Exam: Normal Color, Warm Assessment and Plan - Assessment and Plan (Free Text) Assessment: 86 yo female with PMH of rhabdomyolysis, HLD, alzheimer's disease, dementia,CAD , HTN, DM2, anxiety admitted for AMS likely 2/2 UTI. Plan: 1. AMS likely 2/2 UTI - UA positive for nitrates and moderate leukocyte esterase - Blood Cultures - no growth - Urine Cultures - Gram Negative Rods- Mercado Sensitive - Discontinue Bactrim - Aspiration and Fall precautions - Cont. to monitor mental status 2. Fever -T max 102.7, current: 101.9 -Tylenol PRN -repeat blood cultures -Chest x ray ordered showing no active disease -repeat UA showing trace esterace and leukocytes -ID consulted, Laisha -IV Vancomycin and cefepime 3. Constipation - CT findings consistent with constipation, diverticulosis - Miralax - Lactobacillus 4. H/o Dementia/Alzheimer Disease/Anxiety - Acute agitation - Psych consulted (Dr. Dewey) - Recs Appreciated -Ativan .25 PO Q4 PRN -Started on Depakote Per Psyche 4. R/o rhabdomyolysis - Total CK- 123 5. Hypokalemia-resolved -continue to monitor 6. CAD - Cont home medications: Plavix 75 Daily 7. HTN - BP: 140/66 - Continue Norvasc 10, Coreg 12.5, Hydralazine 50 TID - Hold for SBP < 110, HR <60 9. Hypotension- resolved -conitnue to monitor 10. Cough-robitussin GI/DVT PPx - Protonix - Lovenox <Nerissa Santana - Last Filed: 03/11/17 15:39> Objective - Vital Signs/Intake and Output Vital Signs (last 24 hours): Temp Pulse Resp BP Pulse Ox 101.9 F H 64 20 140/66 98 03/11/17 10:37 03/11/17 10:26 03/11/17 00:30 03/11/17 10:26 03/11/17 00:30 Intake and Output: 03/11/17 03/11/17 06:59 18:59 Intake Total 120 Balance 120 - Medications Medications: Current Medications Acetaminophen (Tylenol 325mg Tab) 650 mg PO Q6H PRN PRN Reason: Fever >100.4 F Acetaminophen (Tylenol 650 Mg Supp) 650 mg RC Q6H PRN PRN Reason: Fever >100.4 F Last Admin: 03/11/17 01:11 Dose: 650 mg Amlodipine Besylate (Norvasc) 10 mg PO DAILY [facility] Last Admin: 03/11/17 10:25 Dose: 10 mg Aspirin (Aspirin Chewable) 81 mg PO DAILY [facility] Last Admin: 03/11/17 10:25 Dose: 81 mg Carvedilol (Coreg) 12.5 mg PO DAILY [facility] Last Admin: 03/11/17 10:25 Dose: 12.5 mg Clopidogrel Bisulfate (Plavix) 75 mg PO DAILY [facility] Last Admin: 03/11/17 10:26 Dose: 75 mg Enoxaparin Sodium (Lovenox) 30 mg SC DAILY [facility] PRN Reason: Protocol Last Admin: 03/11/17 10:26 Dose: 30 mg Guaifenesin (Robitussin) 100 mg PO Q6H PRN PRN Reason: Cough Last Admin: 03/09/17 22:40 Dose: 100 mg Hydralazine HCl (Apresoline) 50 mg PO TID [facility] Last Admin: 03/11/17 13:41 Dose: Not Given Dextrose (Dextrose 5% In Water 1000 Ml) 1,000 mls @ 100 mls/hr IV .Q10H [facility] Last Admin: 03/11/17 15:22 Dose: 100 mls/hr Cefepime HCl (Maxipime 2gm) 2 gm in 100 mls @ 100 mls/hr IVPB Q12 [facility] PRN Reason: Protocol Stop: 03/16/17 13:01 Last Admin: 03/11/17 15:23 Dose: 100 mls/hr Isosorbide Mononitrate (Imdur) 60 mg PO DAILY [facility] Last Admin: 03/07/17 10:54 Dose: 60 mg Lactobacillus Acidophilus (Bacid Acidophilus) 1 cap PO BID [facility] Last Admin: 03/11/17 13:43 Dose: Not Given Lorazepam (Ativan) 0.25 mg PO Q4 PRN PRN Reason: Agitation Last Admin: 03/09/17 19:16 Dose: 0.25 mg Pantoprazole Sodium (Protonix Ec Tab) 40 mg PO 0600 [facility] Last Admin: 03/11/17 07:19 Dose: Not Given Polyethylene Glycol (Miralax) 17 gm PO DAILY [facility] Last Admin: 03/11/17 10:26 Dose: 17 gm Risperidone (Risperdal Tab) 0.5 mg PO AMHS [facility] PRN Reason: Protocol Last Admin: 03/11/17 10:18 Dose: 0.5 mg Valproate Sodium (Depakene Oral Soln) 125 mg PO TID [facility] Last Admin: 03/11/17 14:32 Dose: Not Given - Labs Labs: 03/11/17 03:55 03/11/17 07:45 Attending/Attestation - Attestation I have personally seen and examined this patient.: Yes I have fully participated in the care of the patient.: Yes I have reviewed all pertinent clinical information, including history, physical exam and plan: Yes Notes (Text): 03/11/17 15:37 86 year old female with past medical history of CAD, hypertension, dementia and Alzheimer's who was sent from [place] due to AMS. She was on antibiotics for E Coli UTI. However overnight and this morning she has fever. Repeat septic workup is ordered. ID evaluation was requested and antibiotics were switched to vancomycin and cefepime. Psychiatry is following patient as well for intermittent episodes of agitation. She is currently on depakene, risperdal and ativan prn. Continue with home medications for CAD/HTN and miralax for constipation. Nerissa Santana MD Hospitalist.
[2017-03-11] MEDS ORDERED: Vancomycin 1gm in NS 250ml 1 GM/250 ML BAG IVPB STA (12:55)
--- NOTE | 2017-03-11 14:00 | CP.PCM.CON ---
History of Present Illness - History of Present Illness History of Present Illness: 86 year old female with PMH of Alzheimer's dementia, dyslipidemia, CAD, HTN, DM , anxiety disorder, history of rhabdomyolysis was [place] [facility] [place] of [place]. She was also found to have possible UTI with E.coli and was being treated with Rocephin. Yesterday the patient started developing fevers. There is no note of convulsions, no loss of consciousness, no vomiting, no diarrhea. Further HPI and ROS is difficult to obtain because of the patient's dementia. Infectious Diseases consult is requested to further evaluate and manage. Review of Systems - Review of Systems All systems: reviewed and no additional remarkable complaints except (as per HPI ) Past Patient History - Past Social History Smoking Status: un - CARDIAC Hx Hypertension: Yes Other/Comment: hyperlipidemia - NEUROLOGICAL Hx Alzheimer's Disease: Yes Hx Dementia: Yes Other/Comment: syncope and collapse - MUSCULOSKELETAL/RHEUMATOLOGICAL Hx Falls: Yes - GENITOURINARY/GYNECOLOGICAL Hx Incontinence: Yes Hx Urinary Tract Infection: Yes - PSYCHIATRIC Hx Substance Use: (un) Meds Allergies/Adverse Reactions: Allergies Allergy/AdvReac Type Severity Reaction Status Date / Time ciprofloxacin [From Cipro] Allergy RASH Verified 03/04/17 23:29 Tetracyclines Allergy RASH Verified 03/04/17 23:29 - Medications Medications: Current Medications Acetaminophen (Tylenol 325mg Tab) 650 mg PO Q6H PRN PRN Reason: Fever >100.4 F Acetaminophen (Tylenol 650 Mg Supp) 650 mg RC Q6H PRN PRN Reason: Fever >100.4 F Last Admin: 03/11/17 01:11 Dose: 650 mg Amlodipine Besylate (Norvasc) 10 mg PO DAILY [facility] Last Admin: 03/10/17 10:00 Dose: Not Given Aspirin (Aspirin Chewable) 81 mg PO DAILY [facility] Last Admin: 03/10/17 10:00 Dose: Not Given Carvedilol (Coreg) 12.5 mg PO DAILY [facility] Last Admin: 03/10/17 10:00 Dose: Not Given Clopidogrel Bisulfate (Plavix) 75 mg PO DAILY [facility] Last Admin: 03/10/17 18:18 Dose: 75 mg Enoxaparin Sodium (Lovenox) 30 mg SC DAILY [facility] PRN Reason: Protocol Last Admin: 03/10/17 18:22 Dose: 30 mg Guaifenesin (Robitussin) 100 mg PO Q6H PRN PRN Reason: Cough Last Admin: 03/09/17 22:40 Dose: 100 mg Hydralazine HCl (Apresoline) 50 mg PO TID [facility] Last Admin: 03/10/17 18:16 Dose: 50 mg Dextrose (Dextrose 5% In Water 1000 Ml) 1,000 mls @ 100 mls/hr IV .Q10H [facility] Last Admin: 03/08/17 01:06 Dose: 100 mls/hr Isosorbide Mononitrate (Imdur) 60 mg PO DAILY [facility] Last Admin: 03/07/17 10:54 Dose: 60 mg Lactobacillus Acidophilus (Bacid Acidophilus) 1 cap PO BID [facility] Last Admin: 03/10/17 18:00 Dose: Not Given Lorazepam (Ativan) 0.25 mg PO Q4 PRN PRN Reason: Agitation Last Admin: 03/09/17 19:16 Dose: 0.25 mg Pantoprazole Sodium (Protonix Ec Tab) 40 mg PO 0600 [facility] Last Admin: 03/10/17 06:14 Dose: Not Given Polyethylene Glycol (Miralax) 17 gm PO DAILY [facility] Last Admin: 03/10/17 10:00 Dose: 17 gm Risperidone (Risperdal Tab) 0.5 mg PO AMHS [facility] PRN Reason: Protocol Last Admin: 03/10/17 21:46 Dose: 0.5 mg Trimethoprim/Sulfamethoxazole (Bactrim Ds Tab) 1 tab PO BID [facility] PRN Reason: Protocol Last Admin: 03/10/17 18:18 Dose: 1 tab Valproate Sodium (Depakene Oral Soln) 125 mg PO TID [facility] Physical Exam - Constitutional Appears: Non-toxic, Chronically Ill - Head Exam Head Exam: NORMAL INSPECTION - ENT Exam ENT Exam: Mucous Membranes Moist - Neck Exam Neck exam: Negative for: Meningismus - Respiratory Exam Respiratory Exam: Decreased Breath Sounds - Cardiovascular Exam Cardiovascular Exam: +S1, +S2 - GI/Abdominal Exam GI & Abdominal Exam: Soft. absent: Tenderness Results - Vital Signs Recent Vital Signs: Last Vital Signs Temp 102.7 F H 03/11/17 01:11 Pulse 66 03/11/17 00:30 Resp 20 03/11/17 00:30 BP 144/65 03/11/17 00:30 Pulse Ox 98 03/11/17 00:30 - Labs Result Diagrams: 03/11/17 03:55 03/11/17 07:45 Labs: Laboratory Results - last 24 hr 03/11/17 03/11/17 03:55 05:30 WBC 7.7 RBC 3.66 Hgb 11.9 L Hct 35.2 L MCV 96.2 MCH 32.5 MCHC 33.8 RDW 15.0 H Plt Count 206 MPV 10.9 Gran % 66.9 Lymph % (Auto) 19.3 L Randolph % (Auto) 13.4 H Eos % (Auto) 0.1 L Baso % (Auto) 0.3 Gran # 5.14 Lymph # 1.5 Randolph # 1.0 H Eos # 0.0 Baso # 0.02 Urine Color Yellow Urine Appearance Clear Urine pH 6.0 Ur Specific [place] 1.025 Urine Protein Trace H Urine Glucose (UA) Negative Urine Ketones Negative Urine Blood Negative Urine Nitrate Negative Urine Bilirubin Negative Urine Urobilinogen 1.0 H Ur Leukocyte Esterase Trace H Urine RBC 0 - 2 Urine WBC 2 - 5 Ur Epithelial Cells 1 - 3 Urine Bacteria Rare Hyaline Casts 0 - 2 Fine Granular Casts 0 - 2 Assessment & Plan - Assessment and Plan (Free Text) Plan: Assessment New onset systemic Inflammatory Response Syndrome, R/O sepsis Alzheimer's dementia dyslipidemia CAD HTN DM anxiety disorder history of rhabdomyolysis Plan Started the patient on a dose of IV Vancomycin and cefepime pending blood cx, urine cx, CXR, PCT will monitor clinically discussed with Dr. Santana
[2017-03-11] MEDS: Cefepime IV 2 gm in NS 2 GM/100 ML BAG IVPB SCH ×2 (15:23→22:40)
--- NOTE | 2017-03-11 22:56 | CON ---
DATE: HISTORY OF PRESENT ILLNESS: The patient is an 86-year-old female with a history of dementia, currently being seen by Psychiatry in the medical floor due to delirium related behavioral changes likely due to treated urinary tract infection. I reviewed Ashlie Vallejo APN's progress note from 03/10/2017 and recent nursing notes on the unit and I met with the patient at the bedside. The patient is difficult to arouse, however, she does open her eyes and can follow simple commands when requested; however, she will not engage in any meaningful communication with me. She do not provide current location, month, year, and is likely still disoriented. Nursing notes indicate that the patient has been confusing, combative at times when she is awake and has required soft restraints. The patient has also been intermittently refusing medications as well as labs, vitals, and SCDs. She has been labile and emotional on the unit and generally remains unpredictable. PHYSICAL EXAMINATION: VITAL SIGNS: Reviewed and the patient does appear to have a fever of 102.7 at 1:11 a.m. and 101.9 at 10:37 a.m. LABORATORY DATA: Labs were also reviewed by this provider. IMPRESSION: The patient continues to have delirium with behavioral disturbance as well as dementia. RECOMMENDATIONS: 1. We will continue with Risperdal 0.5 mg a.m. and h.s. which was changed from Haldol as this can be provided in liquid form. 2. Depakene 125 mg p.o. t.i.d. will be started in lieu of Depakote Sprinkles is provided and see the order from yesterday, hence I reinitiate this medication this morning. 3. Psychiatry will continue to follow up with the patient every other day to assess tolerance to medications and behavioral changes earlier consult if there are any acute changes in the patient's mental status. Aneesh Grimaldo MD
[2017-03-12] MEDS: Pantoprazole 40 mg EC Tab PO SCH (06:49)
[2017-03-12] MEDS: Valproic Acid 250 mg/5 ml UD Cup PO SCH ×3 (10:12→18:17)
[2017-03-12] MEDS: Lactobacillus Acidophilus 500 MU Cap PO SCH ×2 (10:13→18:17)
[2017-03-12] MEDS: Enoxaparin 30 mg Syringe SC SCH (10:23)
[2017-03-12] MEDS: POLYETHYLENE GLYCOL 3350 17 GM/Dose PACKET PO SCH ×3 (10:23→15:52)
[2017-03-12] MEDS: Cefepime IV 2 gm in NS 2 GM/100 ML BAG IVPB SCH ×2 (10:24→21:51)
--- NOTE | 2017-03-12 13:34 | CP.PCM.PN ---
<Herminio Andrade - Last Filed: 03/12/17 13:23> Subjective - Date & Time of Evaluation Date of Evaluation: 03/12/17 Time of Evaluation: 11:15 - Subjective Subjective: Subjective: Patient seen and examined at bedside. Resting comfortably in bed. No acute overnight events. Patient is alert, awake, responds to verbal stimuli, however does not answer questions appropriately. Does not offer any new complaints. 12-point review of systems cannot be ascertained at this time due to AMS. Physical Examination: - Constitutional Appears: Non-toxic, No Acute Distress - Head Exam Head Exam: ATRAUMATIC, NORMAL INSPECTION, NORMOCEPHALIC - Eye Exam Eye Exam: EOMI, Normal appearance - ENT Exam ENT Exam: Mucous Membranes Moist - Neck Exam Neck Exam: absent: Lymphadenopathy, Tenderness - Respiratory Exam Respiratory Exam: Clear to Ausculation Bilateral, NORMAL BREATHING PATTERN - Cardiovascular Exam Cardiovascular Exam: REGULAR RHYTHM, +S1, +S2 - Extremities Exam Extremities Exam: Normal Inspection - Neurological Exam Neurological Exam: Alert. absent: Oriented x3 - Psychiatric Exam Psychiatric exam: Normal Mood - Skin Skin Exam: Normal Color, Warm Assessment and Plan: Patient is a 86 year old female with PMHx of rhabdomyolysis, HLD, alzheimer's disease, dementia,CAD, HTN, DM2, and anxiety who was admitted for evaluation and treatment of AMS likely 2/2 UTI. AMS likely 2/2 UTI - UA positive for nitrates and moderate leukocyte esterase - Blood Cultures - no growth; - Urine Cultures - Gram Negative Rods- Mercado Sensitive - Aspiration and Fall precautions - Cont. to monitor mental status Fever - t max yesterday evening 101.9 F - Tylenol PRN - repeat blood cultures- no growth after 24 hours - repeat UA showing trace esterace and leukocytes - ID consulted- appreciate recommendations- patient on a dose of IV cefepime Constipation - CT findings consistent with constipation, diverticulosis - c/w Miralax - c/w Lactobacillus H/o Dementia/Alzheimer Disease/Anxiety - Psych consulted (Dr. Dewey) - Recs Appreciated- c/w depakote - Ativan .25 PO Q4 PRN - c/w resperidone Hx of CAD - Cont home medications: Plavix 75 Daily Hx of HTN - BP and HR reviewed, trended, and appreciated - Continue Norvasc 10, Coreg 12.5, Hydralazine 50 TID - Hold for SBP < 110, HR <60 Cough - c/w robitussin GI/DVT PPx - Protonix - Lovenox - labs pending at this time, will follow up results. Patient seen with, case discussed with, and plan approved by attending physician , Dr. Santana. Objective - Vital Signs/Intake and Output Vital Signs (last 24 hours): Temp Pulse Resp BP Pulse Ox 99.4 F 61 20 150/50 L 97 03/12/17 08:00 03/12/17 08:00 03/12/17 08:00 03/12/17 10:21 03/12/17 08:00 Intake and Output: 03/12/17 03/12/17 06:59 18:59 Intake Total 200 Balance 200 - Medications Medications: Current Medications Acetaminophen (Tylenol 325mg Tab) 650 mg PO Q6H PRN PRN Reason: Fever >100.4 F Acetaminophen (Tylenol 650 Mg Supp) 650 mg RC Q6H PRN PRN Reason: Fever >100.4 F Last Admin: 03/11/17 01:11 Dose: 650 mg Amlodipine Besylate (Norvasc) 10 mg PO DAILY [facility] Last Admin: 03/12/17 10:21 Dose: Not Given Aspirin (Aspirin Chewable) 81 mg PO DAILY [facility] Last Admin: 03/12/17 10:12 Dose: 81 mg Carvedilol (Coreg) 12.5 mg PO DAILY [facility] Last Admin: 03/12/17 10:31 Dose: Not Given Clopidogrel Bisulfate (Plavix) 75 mg PO DAILY [facility] Last Admin: 03/12/17 10:22 Dose: 75 mg Enoxaparin Sodium (Lovenox) 30 mg SC DAILY [facility] PRN Reason: Protocol Last Admin: 03/12/17 10:23 Dose: 30 mg Guaifenesin (Robitussin) 100 mg PO Q6H PRN PRN Reason: Cough Last Admin: 03/09/17 22:40 Dose: 100 mg Hydralazine HCl (Apresoline) 50 mg PO TID [facility] Last Admin: 03/12/17 10:27 Dose: Not Given Dextrose (Dextrose 5% In Water 1000 Ml) 1,000 mls @ 100 mls/hr IV .Q10H [facility] Last Admin: 03/11/17 15:22 Dose: 100 mls/hr Cefepime HCl (Maxipime 2gm) 2 gm in 100 mls @ 100 mls/hr IVPB Q12 [facility] PRN Reason: Protocol Stop: 03/16/17 13:01 Last Admin: 03/12/17 10:24 Dose: 100 mls/hr Isosorbide Mononitrate (Imdur) 60 mg PO DAILY [facility] Last Admin: 03/07/17 10:54 Dose: 60 mg Lactobacillus Acidophilus (Bacid Acidophilus) 1 cap PO BID [facility] Last Admin: 03/12/17 10:13 Dose: 1 cap Lorazepam (Ativan) 0.25 mg PO Q4 PRN PRN Reason: Agitation Last Admin: 03/12/17 00:49 Dose: 0.25 mg Pantoprazole Sodium (Protonix Ec Tab) 40 mg PO 0600 [facility] Last Admin: 03/12/17 06:49 Dose: 40 mg Polyethylene Glycol (Miralax) 17 gm PO DAILY [facility] Last Admin: 03/12/17 10:35 Dose: Not Given Risperidone (Risperdal Tab) 0.5 mg PO AMHS [facility] PRN Reason: Protocol Last Admin: 03/12/17 10:12 Dose: 0.5 mg Valproate Sodium (Depakene Oral Soln) 125 mg PO TID [facility] Last Admin: 03/12/17 10:12 Dose: 125 mg - Labs Labs: 03/11/17 03:55 03/11/17 07:45 <Nerissa Santana - Last Filed: 03/12/17 14:05> Objective - Vital Signs/Intake and Output Vital Signs (last 24 hours): Temp Pulse Resp BP Pulse Ox 99.4 F 61 20 150/50 L 97 03/12/17 08:00 03/12/17 08:00 03/12/17 08:00 03/12/17 10:21 03/12/17 08:00 Intake and Output: 03/12/17 03/12/17 06:59 18:59 Intake Total 200 Balance 200 - Medications Medications: Current Medications Acetaminophen (Tylenol 325mg Tab) 650 mg PO Q6H PRN PRN Reason: Fever >100.4 F Acetaminophen (Tylenol 650 Mg Supp) 650 mg RC Q6H PRN PRN Reason: Fever >100.4 F Last Admin: 03/11/17 01:11 Dose: 650 mg Amlodipine Besylate (Norvasc) 10 mg PO DAILY [facility] Last Admin: 03/12/17 10:21 Dose: Not Given Aspirin (Aspirin Chewable) 81 mg PO DAILY [facility] Last Admin: 03/12/17 10:12 Dose: 81 mg Carvedilol (Coreg) 12.5 mg PO DAILY [facility] Last Admin: 03/12/17 10:31 Dose: Not Given Clopidogrel Bisulfate (Plavix) 75 mg PO DAILY [facility] Last Admin: 03/12/17 10:22 Dose: 75 mg Enoxaparin Sodium (Lovenox) 30 mg SC DAILY [facility] PRN Reason: Protocol Last Admin: 03/12/17 10:23 Dose: 30 mg Guaifenesin (Robitussin) 100 mg PO Q6H PRN PRN Reason: Cough Last Admin: 03/09/17 22:40 Dose: 100 mg Hydralazine HCl (Apresoline) 50 mg PO TID [facility] Last Admin: 03/12/17 10:27 Dose: Not Given Dextrose (Dextrose 5% In Water 1000 Ml) 1,000 mls @ 100 mls/hr IV .Q10H [facility] Last Admin: 03/11/17 15:22 Dose: 100 mls/hr Cefepime HCl (Maxipime 2gm) 2 gm in 100 mls @ 100 mls/hr IVPB Q12 [facility] PRN Reason: Protocol Stop: 03/16/17 13:01 Last Admin: 03/12/17 10:24 Dose: 100 mls/hr Isosorbide Mononitrate (Imdur) 60 mg PO DAILY [facility] Last Admin: 03/07/17 10:54 Dose: 60 mg Lactobacillus Acidophilus (Bacid Acidophilus) 1 cap PO BID [facility] Last Admin: 03/12/17 10:13 Dose: 1 cap Lorazepam (Ativan) 0.25 mg PO Q4 PRN PRN Reason: Agitation Last Admin: 03/12/17 00:49 Dose: 0.25 mg Pantoprazole Sodium (Protonix Ec Tab) 40 mg PO 0600 [facility] Last Admin: 03/12/17 06:49 Dose: 40 mg Polyethylene Glycol (Miralax) 17 gm PO DAILY [facility] Last Admin: 03/12/17 10:35 Dose: Not Given Risperidone (Risperdal Tab) 0.5 mg PO AMHS [facility] PRN Reason: Protocol Last Admin: 03/12/17 10:12 Dose: 0.5 mg Valproate Sodium (Depakene Oral Soln) 125 mg PO TID [facility] Last Admin: 03/12/17 10:12 Dose: 125 mg - Labs Labs: 03/11/17 03:55 03/11/17 07:45 Attending/Attestation - Attestation I have personally seen and examined this patient.: Yes I have fully participated in the care of the patient.: Yes I have reviewed all pertinent clinical information, including history, physical exam and plan: Yes Notes (Text): 03/12/17 14:03 86 year old female with past medical history of CAD, hypertension, dementia and Alzheimer's who was sent from [place] due to AMS. She was on antibiotics for E Coli UTI. ID evaluation was appreciated for fever two nights prior and yesterday. Continue with antibiotics as per ID. Will follow up on repeat septic workup. She continues to have labile moods with intermittent episodes of agitation and tearfulness. She is currently on depakene, risperdal and ativan prn. Will follow up with psychiatry recommendations. Continue with home medications for CAD/HTN and miralax for constipation. Nerissa Santana MD Hospitalist.
--- NOTE | 2017-03-12 13:51 | CP.PCM.PN ---
Subjective - Date & Time of Evaluation Date of Evaluation: 03/12/17 Time of Evaluation: 12:35 - Subjective Subjective: Not in distress, no fevers. Objective - Vital Signs/Intake and Output Vital Signs (last 24 hours): Temp Pulse Resp BP Pulse Ox 99.4 F 61 20 150/50 L 97 03/12/17 08:00 03/12/17 08:00 03/12/17 08:00 03/12/17 10:21 03/12/17 08:00 Intake and Output: 03/12/17 03/12/17 06:59 18:59 Intake Total 200 Balance 200 - Medications Medications: Current Medications Acetaminophen (Tylenol 325mg Tab) 650 mg PO Q6H PRN PRN Reason: Fever >100.4 F Acetaminophen (Tylenol 650 Mg Supp) 650 mg RC Q6H PRN PRN Reason: Fever >100.4 F Last Admin: 03/11/17 01:11 Dose: 650 mg Amlodipine Besylate (Norvasc) 10 mg PO DAILY [facility] Last Admin: 03/12/17 10:21 Dose: Not Given Aspirin (Aspirin Chewable) 81 mg PO DAILY [facility] Last Admin: 03/12/17 10:12 Dose: 81 mg Carvedilol (Coreg) 12.5 mg PO DAILY [facility] Last Admin: 03/12/17 10:31 Dose: Not Given Clopidogrel Bisulfate (Plavix) 75 mg PO DAILY [facility] Last Admin: 03/12/17 10:22 Dose: 75 mg Enoxaparin Sodium (Lovenox) 30 mg SC DAILY [facility] PRN Reason: Protocol Last Admin: 03/12/17 10:23 Dose: 30 mg Guaifenesin (Robitussin) 100 mg PO Q6H PRN PRN Reason: Cough Last Admin: 03/09/17 22:40 Dose: 100 mg Hydralazine HCl (Apresoline) 50 mg PO TID [facility] Last Admin: 03/12/17 10:27 Dose: Not Given Dextrose (Dextrose 5% In Water 1000 Ml) 1,000 mls @ 100 mls/hr IV .Q10H [facility] Last Admin: 03/11/17 15:22 Dose: 100 mls/hr Cefepime HCl (Maxipime 2gm) 2 gm in 100 mls @ 100 mls/hr IVPB Q12 [facility] PRN Reason: Protocol Stop: 03/16/17 13:01 Last Admin: 03/12/17 10:24 Dose: 100 mls/hr Isosorbide Mononitrate (Imdur) 60 mg PO DAILY [facility] Last Admin: 03/07/17 10:54 Dose: 60 mg Lactobacillus Acidophilus (Bacid Acidophilus) 1 cap PO BID [facility] Last Admin: 03/12/17 10:13 Dose: 1 cap Lorazepam (Ativan) 0.25 mg PO Q4 PRN PRN Reason: Agitation Last Admin: 03/12/17 00:49 Dose: 0.25 mg Pantoprazole Sodium (Protonix Ec Tab) 40 mg PO 0600 [facility] Last Admin: 03/12/17 06:49 Dose: 40 mg Polyethylene Glycol (Miralax) 17 gm PO DAILY [facility] Last Admin: 03/12/17 10:35 Dose: Not Given Risperidone (Risperdal Tab) 0.5 mg PO AMHS [facility] PRN Reason: Protocol Last Admin: 03/12/17 10:12 Dose: 0.5 mg Valproate Sodium (Depakene Oral Soln) 125 mg PO TID [facility] Last Admin: 03/12/17 10:12 Dose: 125 mg - Labs Labs: 03/11/17 03:55 03/11/17 07:45 - Constitutional Appears: Chronically Ill - Head Exam Head Exam: NORMAL INSPECTION - Neck Exam Neck Exam: absent: Meningismus - Respiratory Exam Respiratory Exam: Decreased Breath Sounds - Cardiovascular Exam Cardiovascular Exam: +S1, +S2 - GI/Abdominal Exam GI & Abdominal Exam: Soft. absent: Tenderness Assessment and Plan - Assessment and Plan (Free Text) Plan: Assessment New onset systemic Inflammatory Response Syndrome, R/O sepsis R/O UTI Alzheimer's dementia dyslipidemia CAD HTN DM anxiety disorder history of rhabdomyolysis Plan continue cefepime day 2; blood cx are negative; follow up urine cx; CXR does not show infiltrates, PCT is only 0.09 will continue to monitor clinically discussed with Dr. Santana previously
[2017-03-12 14:39] LABS: BASO # 0.02 K/mm3 (0.0-2.0); BASO % 0.4 % (0.0-3.0); EOS # 0.1 (0.0-0.7); EOS % 1.5 % (1.5-5.0); GRAN # 1.63 (1.4-6.5); GRAN % 35.6 % (50.0-68.0); HEMOGLOBIN 11.4 g/dL (12.0-16.0); LYMPH # 2.1 (1.2-3.4); LYMPH % 46.1 % (22.0-35.0); MEAN CELL VOLUME 95.2 fl (80.0-105.0); MEAN CORPUSCULAR HEMOGLOBIN 31.9 pg (25.0-35.0); MEAN CORPUSCULAR HGB CONC 33.5 g/dl (31.0-37.0); MEAN PLATELET VOLUME 10.6 fl (7.0-11.0); MONO # 0.8 (0.1-0.6); MONO % 16.4 % (1.0-6.0); RBC 3.57 10^6/uL (3.5-6.1); RED CELL DISTRIBUTION WIDTH 14.9 % (11.5-14.5); WHITE BLOOD COUNT 4.6 10^3/ul (4.5-11.0)
[2017-03-12 15:09] LABS: ALBUMIN 3.3 g/dL (3.0-4.8); CALCIUM 8.7 mg/dL (8.4-10.5)
[2017-03-13] MEDS: Pantoprazole 40 mg EC Tab PO SCH (07:43)
--- NOTE | 2017-03-13 11:08 | CP.PCM.PN ---
<Herminio Andrade - Last Filed: 03/13/17 11:02> Subjective - Date & Time of Evaluation Date of Evaluation: 03/13/17 Time of Evaluation: 08:45 - Subjective Subjective: Subjective: Patient seen and examined at bedside. Resting comfortably in bed. No acute overnight events. Patient is alert, awake, responds to verbal stimuli, however does not answer questions appropriately. Does not offer any new complaints. 12-point review of systems cannot be ascertained at this time due to AMS. Physical Examination: - Constitutional Appears: Non-toxic, No Acute Distress - Head Exam Head Exam: ATRAUMATIC, NORMAL INSPECTION, NORMOCEPHALIC - Eye Exam Eye Exam: EOMI, Normal appearance - ENT Exam ENT Exam: Mucous Membranes Moist - Neck Exam Neck Exam: absent: Lymphadenopathy, Tenderness - Respiratory Exam Respiratory Exam: Clear to Ausculation Bilateral, NORMAL BREATHING PATTERN - Cardiovascular Exam Cardiovascular Exam: REGULAR RHYTHM, +S1, +S2 - Extremities Exam Extremities Exam: Normal Inspection - Neurological Exam Neurological Exam: Alert. absent: Oriented x3 - Psychiatric Exam Psychiatric exam: Normal Mood - Skin Skin Exam: Normal Color, Warm Assessment and Plan: Patient is a 86 year old female with PMHx of rhabdomyolysis, HLD, alzheimer's disease, dementia,CAD, HTN, DM2, and anxiety who was admitted for evaluation and treatment of AMS likely 2/2 UTI. New onset systemic Inflammatory Response Syndrome - R/O sepsis - no fevers overnight - Tylenol PRN - repeat blood cultures- no growth after 24 hours - repeat UA showing trace esterace and leukocytes - ID consulted- appreciate recommendations- patient on a dose of IV cefepime- day 3- will discuss to switch to PO abx AMS likely 2/2 UTI - 03/11/17- UA positive leukocyte esterase - Blood Cultures from 03/11/17- - no growth after 48 hours; - Urine Cultures from 03/11/17- no growth - Aspiration and Fall precautions - Cont. to monitor mental status Constipation - CT findings consistent with constipation, diverticulosis - c/w Miralax - c/w Lactobacillus H/o Dementia/Alzheimer Disease/Anxiety - Psych consulted (Dr. Dewey) - Recs Appreciated- c/w depakote - Ativan .25 PO Q4 PRN - c/w resperidone Hx of CAD - Cont home medications: Plavix 75 Daily Hx of HTN - BP and HR reviewed, trended, and appreciated - Continue Norvasc 10, Coreg 12.5, Hydralazine 50 TID - Hold for SBP < 110, HR <60 Cough - c/w robitussin GI/DVT PPx - Protonix - Lovenox Patient seen with, case discussed with, and plan approved by attending physician , Dr. Nicholson. Objective - Vital Signs/Intake and Output Vital Signs (last 24 hours): Temp Pulse Resp BP Pulse Ox 97.6 F 96 H 18 175/72 H 95 03/13/17 08:00 03/13/17 08:00 03/13/17 08:00 03/13/17 08:00 03/13/17 08:00 Intake and Output: 03/13/17 03/13/17 06:59 18:59 Intake Total 180 Balance 180 - Medications Medications: Current Medications Acetaminophen (Tylenol 325mg Tab) 650 mg PO Q6H PRN PRN Reason: Fever >100.4 F Acetaminophen (Tylenol 650 Mg Supp) 650 mg RC Q6H PRN PRN Reason: Fever >100.4 F Last Admin: 03/11/17 01:11 Dose: 650 mg Amlodipine Besylate (Norvasc) 10 mg PO DAILY [facility] Last Admin: 03/12/17 10:21 Dose: Not Given Aspirin (Aspirin Chewable) 81 mg PO DAILY [facility] Last Admin: 03/12/17 10:12 Dose: 81 mg Carvedilol (Coreg) 12.5 mg PO DAILY [facility] Last Admin: 03/12/17 10:31 Dose: Not Given Clopidogrel Bisulfate (Plavix) 75 mg PO DAILY [facility] Last Admin: 03/12/17 10:22 Dose: 75 mg Enoxaparin Sodium (Lovenox) 30 mg SC DAILY [facility] PRN Reason: Protocol Last Admin: 03/12/17 10:23 Dose: 30 mg Guaifenesin (Robitussin) 100 mg PO Q6H PRN PRN Reason: Cough Last Admin: 03/09/17 22:40 Dose: 100 mg Hydralazine HCl (Apresoline) 50 mg PO TID [facility] Last Admin: 03/12/17 18:17 Dose: Not Given Dextrose (Dextrose 5% In Water 1000 Ml) 1,000 mls @ 100 mls/hr IV .Q10H [facility] Last Admin: 03/11/17 15:22 Dose: 100 mls/hr Cefepime HCl (Maxipime 2gm) 2 gm in 100 mls @ 100 mls/hr IVPB Q12 [facility] PRN Reason: Protocol Stop: 03/16/17 13:01 Last Admin: 03/12/17 21:51 Dose: 100 mls/hr Isosorbide Mononitrate (Imdur) 60 mg PO DAILY [facility] Last Admin: 03/07/17 10:54 Dose: 60 mg Lactobacillus Acidophilus (Bacid Acidophilus) 1 cap PO BID [facility] Last Admin: 03/12/17 18:17 Dose: 1 cap Lorazepam (Ativan) 0.25 mg PO Q4 PRN PRN Reason: Agitation Last Admin: 03/12/17 15:50 Dose: 0.25 mg Pantoprazole Sodium (Protonix Ec Tab) 40 mg PO 0600 [facility] Last Admin: 03/13/17 07:43 Dose: 40 mg Polyethylene Glycol (Miralax) 17 gm PO DAILY [facility] Last Admin: 03/12/17 15:52 Dose: 17 gm Risperidone (Risperdal Tab) 0.5 mg PO AMHS [facility] PRN Reason: Protocol Last Admin: 03/12/17 21:50 Dose: 0.5 mg Valproate Sodium (Depakene Oral Soln) 125 mg PO TID [facility] Last Admin: 03/12/17 18:17 Dose: 125 mg - Labs Labs: 03/12/17 14:15 03/12/17 14:15 <Saji Nicholson - Last Filed: 03/13/17 13:15> Objective - Vital Signs/Intake and Output Vital Signs (last 24 hours): Temp Pulse Resp BP Pulse Ox 97.6 F 96 H 18 175/72 H 95 03/13/17 08:00 03/13/17 08:00 03/13/17 08:00 03/13/17 08:00 03/13/17 08:00 Intake and Output: 03/13/17 03/13/17 06:59 18:59 Intake Total 180 Balance 180 - Medications Medications: Current Medications Acetaminophen (Tylenol 325mg Tab) 650 mg PO Q6H PRN PRN Reason: Fever >100.4 F Acetaminophen (Tylenol 650 Mg Supp) 650 mg RC Q6H PRN PRN Reason: Fever >100.4 F Last Admin: 03/11/17 01:11 Dose: 650 mg Amlodipine Besylate (Norvasc) 10 mg PO DAILY [facility] Last Admin: 03/13/17 12:26 Dose: Not Given Aspirin (Aspirin Chewable) 81 mg PO DAILY [facility] Last Admin: 03/13/17 12:25 Dose: 81 mg Carvedilol (Coreg) 12.5 mg PO DAILY [facility] Last Admin: 03/13/17 12:24 Dose: 12.5 mg Clopidogrel Bisulfate (Plavix) 75 mg PO DAILY [facility] Last Admin: 03/13/17 12:25 Dose: 75 mg Enoxaparin Sodium (Lovenox) 30 mg SC DAILY [facility] PRN Reason: Protocol Last Admin: 03/13/17 12:06 Dose: 30 mg Guaifenesin (Robitussin) 100 mg PO Q6H PRN PRN Reason: Cough Last Admin: 03/09/17 22:40 Dose: 100 mg Hydralazine HCl (Apresoline) 50 mg PO TID [facility] Last Admin: 03/13/17 12:24 Dose: 50 mg Dextrose (Dextrose 5% In Water 1000 Ml) 1,000 mls @ 100 mls/hr IV .Q10H [facility] Last Admin: 03/11/17 15:22 Dose: 100 mls/hr Cefepime HCl (Maxipime 2gm) 2 gm in 100 mls @ 100 mls/hr IVPB Q12 [facility] PRN Reason: Protocol Stop: 03/16/17 13:01 Last Admin: 03/13/17 12:07 Dose: 100 mls/hr Isosorbide Mononitrate (Imdur) 60 mg PO DAILY [facility] Last Admin: 03/07/17 10:54 Dose: 60 mg Lactobacillus Acidophilus (Bacid Acidophilus) 1 cap PO BID [facility] Last Admin: 03/13/17 12:25 Dose: 1 cap Lorazepam (Ativan) 0.25 mg PO Q4 PRN PRN Reason: Agitation Last Admin: 03/13/17 12:21 Dose: 0.25 mg Pantoprazole Sodium (Protonix Ec Tab) 40 mg PO 0600 [facility] Last Admin: 03/13/17 07:43 Dose: 40 mg Polyethylene Glycol (Miralax) 17 gm PO DAILY [facility] Last Admin: 03/13/17 12:07 Dose: 17 gm Risperidone (Risperdal Tab) 0.5 mg PO AMHS [facility] PRN Reason: Protocol Last Admin: 03/13/17 12:25 Dose: 0.5 mg Valproate Sodium (Depakene Oral Soln) 125 mg PO TID [facility] Last Admin: 03/13/17 12:07 Dose: 125 mg - Labs Labs: 03/12/17 14:15 03/12/17 14:15 Attending/Attestation - Attestation I have personally seen and examined this patient.: Yes I have fully participated in the care of the patient.: Yes I have reviewed all pertinent clinical information, including history, physical exam and plan: Yes Notes (Text): 03/13/17 13:13 Patient was seen and examined with er medical technician. 87 yrs old female halfway Resident with PMH of HTN, H/O CHF, Dementia was transferred from [place] with change of mental status , found to due to Ecoli UTI/Demetia with agitation.Patient is afebrile since 48 hour.Antibiotics can be changed to oral. Patient is more calm today, will discuss with case management on Tuesday regarding disposition.
[2017-03-13] MEDS: Enoxaparin 30 mg Syringe SC SCH (12:06)
[2017-03-13] MEDS: POLYETHYLENE GLYCOL 3350 17 GM/Dose PACKET PO SCH (12:07)
[2017-03-13] MEDS: Valproic Acid 250 mg/5 ml UD Cup PO SCH ×3 (12:07→17:32)
[2017-03-13] MEDS: Cefepime IV 2 gm in NS 2 GM/100 ML BAG IVPB SCH ×2 (12:07→22:30)
[2017-03-13] MEDS: Lactobacillus Acidophilus 500 MU Cap PO SCH ×2 (12:25→17:33)
--- NOTE | 2017-03-13 12:52 | CP.PCM.PN ---
Subjective - Date & Time of Evaluation Date of Evaluation: 03/13/17 Time of Evaluation: 12:10 - Subjective Subjective: Comfortable, no fevers. Objective - Vital Signs/Intake and Output Vital Signs (last 24 hours): Temp Pulse Resp BP Pulse Ox 97.6 F 96 H 18 175/72 H 95 03/13/17 08:00 03/13/17 08:00 03/13/17 08:00 03/13/17 08:00 03/13/17 08:00 Intake and Output: 03/13/17 03/13/17 06:59 18:59 Intake Total 180 Balance 180 - Medications Medications: Current Medications Acetaminophen (Tylenol 325mg Tab) 650 mg PO Q6H PRN PRN Reason: Fever >100.4 F Acetaminophen (Tylenol 650 Mg Supp) 650 mg RC Q6H PRN PRN Reason: Fever >100.4 F Last Admin: 03/11/17 01:11 Dose: 650 mg Amlodipine Besylate (Norvasc) 10 mg PO DAILY [facility] Last Admin: 03/12/17 10:21 Dose: Not Given Aspirin (Aspirin Chewable) 81 mg PO DAILY [facility] Last Admin: 03/12/17 10:12 Dose: 81 mg Carvedilol (Coreg) 12.5 mg PO DAILY [facility] Last Admin: 03/12/17 10:31 Dose: Not Given Clopidogrel Bisulfate (Plavix) 75 mg PO DAILY [facility] Last Admin: 03/12/17 10:22 Dose: 75 mg Enoxaparin Sodium (Lovenox) 30 mg SC DAILY [facility] PRN Reason: Protocol Last Admin: 03/12/17 10:23 Dose: 30 mg Guaifenesin (Robitussin) 100 mg PO Q6H PRN PRN Reason: Cough Last Admin: 03/09/17 22:40 Dose: 100 mg Hydralazine HCl (Apresoline) 50 mg PO TID [facility] Last Admin: 03/12/17 18:17 Dose: Not Given Dextrose (Dextrose 5% In Water 1000 Ml) 1,000 mls @ 100 mls/hr IV .Q10H [facility] Last Admin: 03/11/17 15:22 Dose: 100 mls/hr Cefepime HCl (Maxipime 2gm) 2 gm in 100 mls @ 100 mls/hr IVPB Q12 [facility] PRN Reason: Protocol Stop: 03/16/17 13:01 Last Admin: 03/12/17 21:51 Dose: 100 mls/hr Isosorbide Mononitrate (Imdur) 60 mg PO DAILY [facility] Last Admin: 03/07/17 10:54 Dose: 60 mg Lactobacillus Acidophilus (Bacid Acidophilus) 1 cap PO BID [facility] Last Admin: 03/12/17 18:17 Dose: 1 cap Lorazepam (Ativan) 0.25 mg PO Q4 PRN PRN Reason: Agitation Last Admin: 03/12/17 15:50 Dose: 0.25 mg Pantoprazole Sodium (Protonix Ec Tab) 40 mg PO 0600 [facility] Last Admin: 03/13/17 07:43 Dose: 40 mg Polyethylene Glycol (Miralax) 17 gm PO DAILY [facility] Last Admin: 03/12/17 15:52 Dose: 17 gm Risperidone (Risperdal Tab) 0.5 mg PO AMHS [facility] PRN Reason: Protocol Last Admin: 03/12/17 21:50 Dose: 0.5 mg Valproate Sodium (Depakene Oral Soln) 125 mg PO TID [facility] Last Admin: 03/12/17 18:17 Dose: 125 mg - Labs Labs: 03/12/17 14:15 03/12/17 14:15 - Constitutional Appears: Chronically Ill - Head Exam Head Exam: NORMAL INSPECTION - Respiratory Exam Respiratory Exam: Decreased Breath Sounds - Cardiovascular Exam Cardiovascular Exam: +S1, +S2 - GI/Abdominal Exam GI & Abdominal Exam: Soft. absent: Tenderness Assessment and Plan - Assessment and Plan (Free Text) Plan: Assessment New onset systemic Inflammatory Response Syndrome, consider sepsis from UTI Alzheimer's dementia dyslipidemia CAD HTN DM anxiety disorder history of rhabdomyolysis Plan continue cefepime day 3; blood cx are negative; follow up urine cx; CXR does not show infiltrates, PCT is only 0.09 will continue to monitor clinically discussed with Dr. Santana previously will check rapid Influenza test
--- NOTE | 2017-03-13 22:48 | CON ---
DATE: HISTORY OF PRESENT ILLNESS: The patient is an 86-year-old female with a history of dementia, who is currently being followed by Psychiatry on the medical floor due to delirium related behavioral changes. The patient has been demonstrating a low improvement in her cooperation, confusion, agitation on the unit. This provider reviewed notes and met with the patient at bedside. The patient's focus is improved today, and she is also more alert and can make eye contact more frequently. She is still disoriented and cannot answer correctly about her current location, circumstances, month, or a year. I reviewed her current situation with her and reassured her that medical staff are here to help her and that she was safe. The patient appeared to be listening to me, but it is unclear if she was comprehending. I asked her to immediately recall current location after I gave this information to her; however, she was unable to do so, still appeared to be listening to what I was saying. She could not answer questions about hallucinations, discomfort or pain, although she was able to pay attention when I called her name. This is the most alert and cooperative I actually have seen the patient. As noted, she is a little bit more spontaneous today. She was able to smile a little bit a few times today; however, verbal communication is poor. Her immediate and remote memory is poor. She appears to have thought blocking and poor word recall, but she is improving. Of note, the patient's baseline is poor; however, it does not include agitation or aggressive behavior and the patient appears to be coming closer to her baseline and the fact that she has been calmer and responding to redirection more and has less episodes of agitation, though her insight and judgement are always poor due to her diagnosis of dementia. RELEVANT PSYCHIATRIC MEDICATIONS: Include Ativan 0.25 mg p.o. q. 4 p.r.n., the patient received three doses yesterday, Risperdal 0.5 mg a.m. and h.s., she received two doses yesterday, Depakene 125 mg p.o. t.i.d. The patient received all her doses yesterday. Vital signs and labs were reviewed by this provider. Vital signs are elevated this morning at 8 a.m., they were 97.6, 96,175/72, and 18. IMPRESSION: The patient continues to be suffering from delirium with behavioral disturbance; however, her impulse control is improving and coming close to the baseline. This is concurrent with a standing diagnosis of dementia. RECOMMENDATIONS: We will continue with current treatment of Risperdal 0.5 mg a.m. and h.s., as well as Depakene 125 mg p.o. t.i.d., and Ativan p.r.n. Psychiatry will continue to follow up with the patient every other day to assess tolerance to medications and for behavioral improvement. Please feel free to request earlier consult if there are any acute changes in the patient's mental status. Aneesh Grimaldo MD
[2017-03-14] MEDS: Pantoprazole 40 mg EC Tab PO SCH (07:15)
[2017-03-14 07:56] LABS: BASO # 0.04 K/mm3 (0.0-2.0); EOS # 0.3 (0.0-0.7); EOS % 6.5 % (1.5-5.0); GRAN # 1.02 (1.4-6.5); GRAN % 24.4 % (50.0-68.0); HEMOGLOBIN 11.8 g/dL (12.0-16.0); LYMPH # 2.1 (1.2-3.4); MEAN CELL VOLUME 94.1 fl (80.0-105.0); MEAN CORPUSCULAR HEMOGLOBIN 31.7 pg (25.0-35.0); MEAN CORPUSCULAR HGB CONC 33.7 g/dl (31.0-37.0); MEAN PLATELET VOLUME 10.6 fl (7.0-11.0); MONO # 0.7 (0.1-0.6); MONO % 17.1 % (1.0-6.0); RBC 3.72 10^6/uL (3.5-6.1); RED CELL DISTRIBUTION WIDTH 14.8 % (11.5-14.5); WHITE BLOOD COUNT 4.2 10^3/ul (4.5-11.0)
[2017-03-14 08:49] VITALS: PULSE 61; RESP 18; TEMP 98.4; O2SAT 97
[2017-03-14 09:04] LABS: ALBUMIN 3.4 g/dL (3.0-4.8); ALT/SGPT 48 U/L (7-56); AST/SGOT 57 U/L (14-36); BLOOD UREA NITROGEN 17 mg/dL (7-21); CALCIUM 9.3 mg/dL (8.4-10.5); GFR AFRICAN-AMERICAN > 60; GFR NON-AFRICAN AMERICAN 53
[2017-03-14] MEDS: Valproic Acid 250 mg/5 ml UD Cup PO SCH ×2 (09:27→15:13)
[2017-03-14] MEDS: Enoxaparin 30 mg Syringe SC SCH (09:28)
[2017-03-14] MEDS: Lactobacillus Acidophilus 500 MU Cap PO SCH (09:28)
[2017-03-14] MEDS: POLYETHYLENE GLYCOL 3350 17 GM/Dose PACKET PO SCH (09:29)
[2017-03-14] MEDS: Cefepime IV 2 gm in NS 2 GM/100 ML BAG IVPB SCH (11:09)
--- NOTE | 2017-03-14 12:43 | CP.PCM.DIS ---
<Pascual Pena - Last Filed: 03/15/17 16:58> Provider - Provider Date of Admission: 03/05/17 17:38 Attending physician: Saji Nicholson MD Primary care physician: Yoli Ghosh MD Consults: Tona Veliz Time Spent in preparation of Discharge (in minutes): 70 Hospital Course - Lab Results Lab Results: Micro Results 03/11/17 01:20 Blood Blood Culture - Preliminary NO GROWTH AFTER 3 DAYS 03/11/17 05:30 Urine,Catheterized Urine Culture - Final No Growth (<1,000 CFU/ML) 03/05/17 17:40 Blood-Venous Blood Culture - Final NO GROWTH AFTER 5 DAYS 03/05/17 17:40 Blood-Venous Gram Stain - Final TEST NOT PERFORMED Most Recent Lab Values WBC 4.2 10^3/ul (4.5-11.0) L 03/14/17 07:00 RBC 3.72 10^6/uL (3.5-6.1) 03/14/17 07:00 Hgb 11.8 g/dL (12.0-16.0) L 03/14/17 07:00 Hct 35.0 % (36.0-48.0) L 03/14/17 07:00 MCV 94.1 fl (80.0-105.0) 03/14/17 07:00 MCH 31.7 pg (25.0-35.0) 03/14/17 07:00 MCHC 33.7 g/dl (31.0-37.0) 03/14/17 07:00 RDW 14.8 % (11.5-14.5) H 03/14/17 07:00 Plt Count 186 10^3/uL (120.0-450.0) 03/14/17 07:00 MPV 10.6 fl (7.0-11.0) 03/14/17 07:00 Gran % 24.4 % (50.0-68.0) L 03/14/17 07:00 Lymph % (Auto) 51.0 % (22.0-35.0) H 03/14/17 07:00 Mills % (Auto) 17.1 % (1.0-6.0) H 03/14/17 07:00 Eos % (Auto) 6.5 % (1.5-5.0) H 03/14/17 07:00 Baso % (Auto) 1.0 % (0.0-3.0) 03/14/17 07:00 Gran # 1.02 (1.4-6.5) L 03/14/17 07:00 Lymph # 2.1 (1.2-3.4) 03/14/17 07:00 Mills # 0.7 (0.1-0.6) H 03/14/17 07:00 Eos # 0.3 (0.0-0.7) 03/14/17 07:00 Baso # 0.04 K/mm3 (0.0-2.0) 03/14/17 07:00 Sodium 142 mmol/L (132-148) 03/14/17 07:00 Potassium 4.3 mmol/L (3.6-5.0) 03/14/17 07:00 Chloride 107 mmol/L (98-107) 03/14/17 07:00 Carbon Dioxide 25 mmol/L (21-33) 03/14/17 07:00 Anion Gap 13 (10-20) 03/14/17 07:00 BUN 17 mg/dL (7-21) 03/14/17 07:00 Creatinine 1.0 mg/dl (0.7-1.2) 03/14/17 07:00 Est GFR ( Amer) > 60 03/14/17 07:00 Est GFR (Non-Af Amer) 53 03/14/17 07:00 POC Glucose (mg/dL) 184 mg/dL (65-110) H 03/06/17 21:56 Random Glucose 85 mg/dL (70-110) 03/14/17 07:00 Calcium 9.3 mg/dL (8.4-10.5) 03/14/17 07:00 Phosphorus 3.2 mg/dL (2.5-4.5) 03/08/17 06:20 Magnesium 1.8 mg/dL (1.7-2.2) 03/08/17 06:20 Total Bilirubin 0.6 mg/dL (0.2-1.3) 03/14/17 07:00 AST 57 U/L (14-36) H D 03/14/17 07:00 ALT 48 U/L (7-56) 03/14/17 07:00 Alkaline Phosphatase 84 U/L (38-126) 03/14/17 07:00 Total Creatine Kinase 123 U/L (35-230) 03/05/17 18:17 Total Protein 6.9 g/dL (5.8-8.3) 03/14/17 07:00 Albumin 3.4 g/dL (3.0-4.8) 03/14/17 07:00 Globulin 3.5 gm/dL 03/14/17 07:00 Albumin/Globulin Ratio 1.0 (1.1-1.8) L 03/14/17 07:00 Triglycerides 112 mg/dL (35-160) 03/07/17 07:30 Cholesterol 169 mg/dL (130-200) 03/07/17 07:30 LDL Cholesterol Direct 97 mg/dL (0-129) 03/07/17 07:30 HDL Cholesterol 40 mg/dL (29-60) 03/07/17 07:30 Lipase 108 U/L (23-300) 03/05/17 05:02 Procalcitonin 0.09 NG/ML (0.19-0.49) L 03/11/17 07:45 Urine Color Yellow (YELLOW) 03/11/17 05:30 Urine Appearance Clear (CLEAR) 03/11/17 05:30 Urine pH 6.0 (4.7-8.0) 03/11/17 05:30 Ur Specific Aristes 1.025 (1.005-1.035) 03/11/17 05:30 Urine Protein Trace mg/dL (<30 mg/dL) H 03/11/17 05:30 Urine Glucose (UA) Negative mg/dL (NEGATIVE) 03/11/17 05:30 Urine Ketones Negative mg/dL (NEGATIVE) 03/11/17 05:30 Urine Blood Negative (NEGATIVE) 03/11/17 05:30 Urine Nitrate Negative (NEGATIVE) 03/11/17 05:30 Urine Bilirubin Negative (NEGATIVE) 03/11/17 05:30 Urine Urobilinogen 1.0 E.U./dL (<1 E.U./dL) H 03/11/17 05:30 Ur Leukocyte Esterase Trace Ann/uL (NEGATIVE) H 03/11/17 05:30 Urine RBC 0 - 2 /hpf (0-2) 03/11/17 05:30 Urine WBC 2 - 5 /hpf (0-6) 03/11/17 05:30 Ur Epithelial Cells 1 - 3 /hpf (0-5) 03/11/17 05:30 Urine Bacteria Rare (NEG) 03/11/17 05:30 Hyaline Casts 0 - 2 /hpf 03/11/17 05:30 Fine Granular Casts 0 - 2 /hpf (0-2) 03/11/17 05:30 Influenza Typ A,B (EIA) Pos for influenza a (NEGATIVE) H 03/13/17 13:45 - Hospital Course Hospital Course: Patient is a 86 year old female with PMHx of rhabdomyolysis, HLD, alzheimer's disease, dementia,CAD, HTN, DM2, and anxiety who was admitted for evaluation and treatment of AMS likely 2/2 UTI. Patients AMS was likely due to UTI which was found on the UA. Blood cultures and urine cultures came back with no growth. She was placed on appropriate antibiotics after ID was consulted. Psych was also consulted for patients episodes of aggression. She was given appropriate medication. Home medicaitonsf or CAD were continue as well as for HTN. She was given robitussin for cough. [facility]. Discharge Exam - Head Exam Head Exam: NORMAL INSPECTION - Eye Exam Eye Exam: EOMI, Normal appearance, PERRL - Respiratory Exam Respiratory Exam: Clear to PA & Lateral, NORMAL BREATHING PATTERN - Cardiovascular Exam Cardiovascular Exam: REGULAR RHYTHM - GI/Abdominal Exam GI & Abdominal Exam: Normal Bowel Sounds - Neurological Exam Neurological exam: Altered Discharge Plan - Discharge Medications Prescriptions: Oseltamivir [Tamiflu Cap] 75 mg PO BID #10 cap risperiDONE [RisperDAL Tab] 0.5 mg PO AMHS #60 tab Valproic Acid [Depakene Oral Soln] 125 mg PO TID #500 ml - Follow Up Plan Condition: IMPROVED Disposition: TRANSF TO [facility] Instructions: Urinary Tract Infection in Women (GEN), Alzheimer Disease (GEN), Dementia (GEN), Fall Prevention for Older Adults (GEN), Hypertension (GEN), Anxiety (GEN) Additional Instructions: Please continue tamiflu two times a day for 5 days. Referrals: PCP,NO [Non-Staff] - <Saji Nicholson - Last Filed: 03/15/17 17:13> Provider - Provider Date of Admission: 03/05/17 17:38 Attending physician: Saji Nicholson MD Primary care physician: Yoli Ghosh MD Hospital Course - Lab Results Lab Results: Micro Results 03/11/17 01:20 Blood Blood Culture - Preliminary NO GROWTH AFTER 4 DAYS 03/11/17 05:30 Urine,Catheterized Urine Culture - Final No Growth (<1,000 CFU/ML) 03/05/17 17:40 Blood-Venous Blood Culture - Final NO GROWTH AFTER 5 DAYS 03/05/17 17:40 Blood-Venous Gram Stain - Final TEST NOT PERFORMED Most Recent Lab Values WBC 4.2 10^3/ul (4.5-11.0) L 03/14/17 07:00 RBC 3.72 10^6/uL (3.5-6.1) 03/14/17 07:00 Hgb 11.8 g/dL (12.0-16.0) L 03/14/17 07:00 Hct 35.0 % (36.0-48.0) L 03/14/17 07:00 MCV 94.1 fl (80.0-105.0) 03/14/17 07:00 MCH 31.7 pg (25.0-35.0) 03/14/17 07:00 MCHC 33.7 g/dl (31.0-37.0) 03/14/17 07:00 RDW 14.8 % (11.5-14.5) H 03/14/17 07:00 Plt Count 186 10^3/uL (120.0-450.0) 03/14/17 07:00 MPV 10.6 fl (7.0-11.0) 03/14/17 07:00 Gran % 24.4 % (50.0-68.0) L 03/14/17 07:00 Lymph % (Auto) 51.0 % (22.0-35.0) H 03/14/17 07:00 Mills % (Auto) 17.1 % (1.0-6.0) H 03/14/17 07:00 Eos % (Auto) 6.5 % (1.5-5.0) H 03/14/17 07:00 Baso % (Auto) 1.0 % (0.0-3.0) 03/14/17 07:00 Gran # 1.02 (1.4-6.5) L 03/14/17 07:00 Lymph # 2.1 (1.2-3.4) 03/14/17 07:00 Mills # 0.7 (0.1-0.6) H 03/14/17 07:00 Eos # 0.3 (0.0-0.7) 03/14/17 07:00 Baso # 0.04 K/mm3 (0.0-2.0) 03/14/17 07:00 Sodium 142 mmol/L (132-148) 03/14/17 07:00 Potassium 4.3 mmol/L (3.6-5.0) 03/14/17 07:00 Chloride 107 mmol/L (98-107) 03/14/17 07:00 Carbon Dioxide 25 mmol/L (21-33) 03/14/17 07:00 Anion Gap 13 (10-20) 03/14/17 07:00 BUN 17 mg/dL (7-21) 03/14/17 07:00 Creatinine 1.0 mg/dl (0.7-1.2) 03/14/17 07:00 Est GFR ( Amer) > 60 03/14/17 07:00 Est GFR (Non-Af Amer) 53 03/14/17 07:00 POC Glucose (mg/dL) 184 mg/dL (65-110) H 03/06/17 21:56 Random Glucose 85 mg/dL (70-110) 03/14/17 07:00 Calcium 9.3 mg/dL (8.4-10.5) 03/14/17 07:00 Phosphorus 3.2 mg/dL (2.5-4.5) 03/08/17 06:20 Magnesium 1.8 mg/dL (1.7-2.2) 03/08/17 06:20 Total Bilirubin 0.6 mg/dL (0.2-1.3) 03/14/17 07:00 AST 57 U/L (14-36) H D 03/14/17 07:00 ALT 48 U/L (7-56) 03/14/17 07:00 Alkaline Phosphatase 84 U/L (38-126) 03/14/17 07:00 Total Creatine Kinase 123 U/L (35-230) 03/05/17 18:17 Total Protein 6.9 g/dL (5.8-8.3) 03/14/17 07:00 Albumin 3.4 g/dL (3.0-4.8) 03/14/17 07:00 Globulin 3.5 gm/dL 03/14/17 07:00 Albumin/Globulin Ratio 1.0 (1.1-1.8) L 03/14/17 07:00 Triglycerides 112 mg/dL (35-160) 03/07/17 07:30 Cholesterol 169 mg/dL (130-200) 03/07/17 07:30 LDL Cholesterol Direct 97 mg/dL (0-129) 03/07/17 07:30 HDL Cholesterol 40 mg/dL (29-60) 03/07/17 07:30 Lipase 108 U/L (23-300) 03/05/17 05:02 Procalcitonin 0.09 NG/ML (0.19-0.49) L 03/11/17 07:45 Urine Color Yellow (YELLOW) 03/11/17 05:30 Urine Appearance Clear (CLEAR) 03/11/17 05:30 Urine pH 6.0 (4.7-8.0) 03/11/17 05:30 Ur Specific Aristes 1.025 (1.005-1.035) 03/11/17 05:30 Urine Protein Trace mg/dL (<30 mg/dL) H 03/11/17 05:30 Urine Glucose (UA) Negative mg/dL (NEGATIVE) 03/11/17 05:30 Urine Ketones Negative mg/dL (NEGATIVE) 03/11/17 05:30 Urine Blood Negative (NEGATIVE) 03/11/17 05:30 Urine Nitrate Negative (NEGATIVE) 03/11/17 05:30 Urine Bilirubin Negative (NEGATIVE) 03/11/17 05:30 Urine Urobilinogen 1.0 E.U./dL (<1 E.U./dL) H 03/11/17 05:30 Ur Leukocyte Esterase Trace Ann/uL (NEGATIVE) H 03/11/17 05:30 Urine RBC 0 - 2 /hpf (0-2) 03/11/17 05:30 Urine WBC 2 - 5 /hpf (0-6) 03/11/17 05:30 Ur Epithelial Cells 1 - 3 /hpf (0-5) 03/11/17 05:30 Urine Bacteria Rare (NEG) 03/11/17 05:30 Hyaline Casts 0 - 2 /hpf 03/11/17 05:30 Fine Granular Casts 0 - 2 /hpf (0-2) 03/11/17 05:30 Influenza Typ A,B (EIA) Pos for influenza a (NEGATIVE) H 03/13/17 13:45 Attending/Attestation - Attestation I have personally seen and examined this patient.: Yes I have fully participated in the care of the patient.: Yes I have reviewed all pertinent clinical information, including history, physical exam and plan: Yes Notes (Text): 03/15/17 17:12 Patient was seen and examined with medical educator. 87 yrs old female snf Resident with PMH of HTN, H/O CHF, Dementia was transferred from [facility] with change of mental status , found to due to Ecoli UTI/Demetia with agitation.Patient is afebrile , has already completed IV antibiotics for UTI. Mental status is at base line.Her agitation has improved. Patient will be discharged back to [facility] today. Prognosis is guarded.
[2017-03-14 15:36] VITALS: BP 156/67
--- NOTE | 2017-03-14 17:23 | CP.PCM.PN ---
Subjective - Date & Time of Evaluation Date of Evaluation: 03/14/17 Time of Evaluation: 13:40 - Subjective Subjective: Comfortable, still had low grade fevers but improving, has Influenza infection. Objective - Vital Signs/Intake and Output Vital Signs (last 24 hours): Temp Pulse Resp BP Pulse Ox 98.4 F 61 18 156/67 H 97 03/14/17 08:00 03/14/17 08:00 03/14/17 08:00 03/14/17 15:15 03/14/17 08:00 Intake and Output: 03/14/17 03/14/17 06:59 18:59 Intake Total 600 Balance 600 - Labs Labs: 03/14/17 07:00 03/14/17 07:00 - Constitutional Appears: Chronically Ill - Head Exam Head Exam: NORMAL INSPECTION - Respiratory Exam Respiratory Exam: Decreased Breath Sounds - Cardiovascular Exam Cardiovascular Exam: +S1, +S2 - GI/Abdominal Exam GI & Abdominal Exam: Soft. absent: Tenderness Assessment and Plan - Assessment and Plan (Free Text) Plan: Assessment New onset systemic Inflammatory Response Syndrome, consider sepsis from UTI as well as new onset Influenza infection Alzheimer's dementia dyslipidemia CAD HTN DM anxiety disorder history of rhabdomyolysis Plan on cefepime day 4 but has had 4 days of rocephin as well - can d/c antibiotics; blood cx are negative; follow up urine cx is negative; CXR does not show infiltrates, PCT is only 0.09 rapid flu test is negative - on Tamiflu and should complete 5 days of therapy will continue to monitor clinically discussed with Dr. Nicholson
--- NOTE | 2017-03-15 09:26 | CP.PCM.PCO ---
Physician Communication Note - Physician Communication Note Physician Communication Note: pt was d/c, pt needs to be f/u by psychiatrist at [facility] within 48-72 hrs.
== END 2017-03-14 16:40 | DRG 690 ==
LOC: ED 23:02 → ERH 03-05 17:38 → 5RSO 03-05 19:40
PROVIDERS: ADMIT Internal Medicine; ATTEND Internal Medicine
DX: N39.0 Urinary tract infection, site not specified (principal); F02.81 Dementia in other diseases classified elsewhere, unspecified severity, with behavioral disturbance; F05 Delirium due to known physiological condition; G30.9 Alzheimer's disease, unspecified; I11.0 Hypertensive heart disease with heart failure; I50.9 Heart failure, unspecified; B96.20 Unspecified Escherichia coli [E. coli] as the cause of diseases classified elsewhere; I95.9 Hypotension, unspecified; E11.9 Type 2 diabetes mellitus without complications; J11.1 Influenza due to unidentified influenza virus with other respiratory manifestations; F41.9 Anxiety disorder, unspecified; E78.5 Hyperlipidemia, unspecified; I25.10 Atherosclerotic heart disease of native coronary artery without angina pectoris; F32.9 Major depressive disorder, single episode, unspecified; K59.00 Constipation, unspecified; K57.90 Diverticulosis of intestine, part unspecified, without perforation or abscess without bleeding; D25.9 Leiomyoma of uterus, unspecified; E87.6 Hypokalemia; Z78.1 Physical restraint status; Z79.82 Long term (current) use of aspirin